=== PATIENT | female | born 1970 | race African-American/Black ===

== ENCOUNTER 2020-05-02 20:53 | Inpatient (IN) | payer BC, OTHER ==
[~2020-05-02] VITALS: Ht 162.6 cm; Wt 97.8 kg
[~2020-05-02 20:53] MED LIST: EPIPEN 2-P0.3 MG/0.3 IJ; HYDR-2761 PO; IBUP-1060 PO; Oxycodone Hcl/Acetaminophen PO
--- NOTE | 2020-05-02 22:32 | RAD ---
Exam: Chest one view INDICATION: Cough TECHNIQUE: Frontal view of the chest Comparisons: None FINDINGS: The cardiomediastinal silhouette and pulmonary vessels are within normal limits. The lung and pleural spaces are clear. IMPRESSION: No acute cardiopulmonary process. Electronically signed by: Dayne Boyd MD (05/02/2020 10:30 PM) ABHILASH
[2020-05-02 22:33] LABS: BASO % 1 % (0-3); EOS # 0.1 x10^3/uL (0.0-0.7); EOS % 2 % (0-3); HEMATOCRIT 37.4 % (36.0-47.0); HEMOGLOBIN 12.2 g/dL (12.0-15.5); LYMPH # 1.7 x10^3/uL (1.0-4.8); LYMPH % 25 % (24-48); MEAN CORPUSCULAR HEMOGLOBIN 27 pg (25-35); MEAN CORPUSCULAR HGB CONC 33 g/dL (31-37); MEAN CORPUSCULAR VOLUME 83 fL (79-100); MONO # 0.4 x10^3/uL (0.0-1.1); MONO % 6 % (0-9); NEUT # 4.4 x10^3/uL (1.8-7.7); NEUT % 66 % (31-73); PLATELET COUNT 286 x10^3/uL (140-400); WHITE BLOOD COUNT 6.7 x10^3/uL (4.0-11.0)
[2020-05-02 22:52] LABS: CALCIUM 8.4 mg/dL (8.5-10.1); CREATININE 0.9 mg/dL (0.6-1.0); GFR 80.5; POTASSIUM 3.5 mmol/L (3.5-5.1)
[2020-05-02] MEDS ORDERED: KETOROLAC 30 MG/ML VIAL. IVP ONE (23:00)
[2020-05-02] MEDS ORDERED: DEXAMETHASONE SOD PHOS 20 MG/5 ML VIAL. IVP ONE (23:00)
[2020-05-02] MEDS ORDERED: IV NORMAL SALINE 1000ML BAG 1,000 ML IV ONE (23:00)
[2020-05-02 23:04] LABS: ALBUMIN 3.3 g/dL (3.4-5.0); ALBUMIN/GLOBULIN RATIO 0.8 (1.0-1.7); C-REACTIVE PROTEIN 19.5 mg/L (0-3.3); TOTAL BILIRUBIN 0.1 mg/dL (0.2-1.0); TOTAL PROTEIN 7.6 g/dL (6.4-8.2)
--- NOTE | 2020-05-02 23:46 | ED.ADGEN ---
Past Medical History Past Medical History: No Pertinent History Past Surgical History: No Surgical History Smoking Status: Never Smoker Alcohol Use: Occasionally General Adult EDM: Chief Complaint: COUGH HPI: HPI: Patient is a 49-year-old female who presents to the emergency room complaining of cough, substernal chest pain, diffuse body aches, fatigue, urinary urgency, fever, headaches. Patient's started feeling ill last Sunday. She had a positive coronavirus test today. She has not been taking anything for symptoms at home. She states that she is mostly been praying to help with her symptoms. She has not tried anything [id number]. She states is substernal chest pain feels like aching has been constant all day. It is worse every time she coughs or moves. Her body aches have improved since . Review of Systems: Review of Systems: Complete ROS is negative unless otherwise documented in HPI Current Medications: Current Medications Medications (Trade) Dose Ordered Sig/Tierra Start Time Stop Time Status Last Admin Dose Admin Dexamethasone Sodium Phosphate (Decadron) 10 mg 1X ONCE 05/02/20 23:00 05/02/20 23:01 DC 05/02/20 23:22 10 MG Ketorolac Tromethamine (Toradol 30mg Vial) 30 mg 1X ONCE 05/02/20 23:00 05/02/20 23:01 DC 05/02/20 23:23 30 MG Sodium Chloride 1,000 ml @ 1,000 mls/hr 1X ONCE 05/02/20 23:00 05/02/20 23:59 DC 05/02/20 23:21 1,000 MLS/HR Allergies: Allergies: Allergies Coded Allergies Type Severity Reaction Last Updated Verified Penicillins Allergy Severe Anaphylaxis 02/25/14 Yes shellfish derived Allergy Severe Anaphylaxis 02/25/14 Yes iodine Adverse Reaction Intermediate NAUSEA, DIARRHEA 02/26/14 Yes Physical Exam: PE: General: Awake, alert, NAD. Well Nourished, well hydrated. Cooperative HEENT: Atraumatic, EOMI, PERRL, airway patent, moist oral mucosa Neck: Supple, trachea midline Respiratory: CTA bilaterally, normal effort, no wheezing/crackles CV: RRR, no murmur, cap refill <2 GI: Soft, nondistended, nontender, no masses MSK: No obvious deformities Skin: Warm, dry, intact Neuro: A&O x3, speech NL, sensory and motor grossly intact, no focal deficits Psych: Normal affect, normal mood, not suicidal or homicidal Current Patient Data: Labs: Laboratory Tests Test 05/02/20 22:25 05/03/20 00:08 05/03/20 01:45 White Blood Count 6.7 x10^3/uL (4.0-11.0) Red Blood Count 4.50 x10^6/uL (3.50-5.40) Hemoglobin 12.2 g/dL (12.0-15.5) Hematocrit 37.4 % (36.0-47.0) Mean Corpuscular Volume 83 fL (79-100) Mean Corpuscular Hemoglobin 27 pg (25-35) Mean Corpuscular Hemoglobin Concent 33 g/dL (31-37) Red Cell Distribution Width 16.0 % (11.5-14.5) H Platelet Count 286 x10^3/uL (140-400) Neutrophils (%) (Auto) 66 % (31-73) Lymphocytes (%) (Auto) 25 % (24-48) Monocytes (%) (Auto) 6 % (0-9) Eosinophils (%) (Auto) 2 % (0-3) Basophils (%) (Auto) 1 % (0-3) Neutrophils # (Auto) 4.4 x10^3/uL (1.8-7.7) Lymphocytes # (Auto) 1.7 x10^3/uL (1.0-4.8) Monocytes # (Auto) 0.4 x10^3/uL (0.0-1.1) Eosinophils # (Auto) 0.1 x10^3/uL (0.0-0.7) Basophils # (Auto) 0.0 x10^3/uL (0.0-0.2) D-Dimer (Rhonda) < 0.27 ug/mlFEU Sodium Level 140 mmol/L (136-145) Potassium Level 3.5 mmol/L (3.5-5.1) Chloride Level 105 mmol/L (98-107) Carbon Dioxide Level 28 mmol/L (21-32) Anion Gap 7 (6-14) Blood Urea Nitrogen 8 mg/dL (7-20) Creatinine 0.9 mg/dL (0.6-1.0) Estimated GFR (Cockcroft-Gault) 80.5 BUN/Creatinine Ratio 9 (6-20) Glucose Level 93 mg/dL (70-99) Calcium Level 8.4 mg/dL (8.5-10.1) L Total Bilirubin 0.1 mg/dL (0.2-1.0) L Aspartate Amino Transferase (AST) 21 U/L (15-37) Alanine Aminotransferase (ALT) 19 U/L (14-59) Alkaline Phosphatase 78 U/L (46-116) Lactate Dehydrogenase 258 U/L (81-234) H Creatine Kinase 126 U/L (26-192) Troponin I Quantitative 0.081 ng/mL (0.000-0.055) 0.105 ng/mL (0.000-0.055) C-Reactive Protein, Quantitative 19.5 mg/L (0-3.3) H [id number]-Zub-[id number]-Type Natriuretic Peptide 24 pg/mL (0-124) Total Protein 7.6 g/dL (6.4-8.2) Albumin 3.3 g/dL (3.4-5.0) L Albumin/Globulin Ratio 0.8 (1.0-1.7) L Urine Collection Type Unknown Urine Color Yellow Urine Clarity Clear Urine pH 7.0 (<5.0-8.0) Urine Specific [place] 1.010 (1.000-1.030) Urine Protein Negative mg/dL (NEG-TRACE) Urine Glucose (UA) Negative mg/dL (NEG) Urine Ketones (Stick) Negative mg/dL (NEG) Urine Blood Negative (NEG) Urine Nitrite Negative (NEG) Urine Bilirubin Negative (NEG) Urine Urobilinogen Dipstick 0.2 mg/dL (0.2 mg/dL) Urine Leukocyte Esterase Trace (NEG) Urine RBC Occ /HPF (0-2) Urine WBC 1-4 /HPF (0-4) Urine Squamous Epithelial Cells Mod /LPF Urine Bacteria Few /HPF (0-FEW) Urine Mucus Slight /LPF Laboratory Tests 05/02/20 22:25 Laboratory Tests 05/02/20 22:25 Vital Signs: Vital Signs Date Time Temp Pulse Resp B/P (MAP) Pulse Ox O2 Delivery O2 Flow Rate FiO2 05/03/20 01:57 58 140/60 (86) 99 Room Air 05/02/20 21:00 97.9 18 97.9 EKG: EKG: [] Heart Score: Risk Factors: Risk Factors: DM, Current or recent (<one month) smoker, HTN, HLP, family history of CAD, obesity. Risk Scores: Score 0 - 3: 2.5% MACE over next 6 weeks - Discharge Home Score 4 - 6: 20.3% MACE over next 6 weeks - Admit for Clinical Observation Score 7 - 10: 72.7% MACE over next 6 weeks - Early Invasive Strategies Radiology/Procedures: Radiology/Procedures: [] Course & Med Decision Making: Course & Med Decision Making Pertinent Labs and Imaging studies reviewed. (See chart for details) Patient is a 49-year-old female who presents to the emergency room with known coronavirus. Patient symptoms are all consistent with novel coronavirus 19. Patient is overall well-appearing. She has not tried anything for symptoms at home. We will give her fluids, Decadron, Toradol here in the emergency room. Labs were ordered to evaluate for any endorgan damage. Patient does have a very mild elevation of her troponin. Repeat was ordered after 3 hours to evaluate trend. Patient does not appear to be in a heart failure. EKG is normal. Troponin trended up. Will admit for observation. Dragon Disclaimer: Dragon Disclaimer: This electronic medical record was generated, in whole or in part, using a voice recognition dictation system. Departure Departure Impression: Primary Impression: Coronavirus infection Additional Impression: Elevated troponin Disposition: ADMITTED INPT THIS HOSP Condition: STABLE Referrals: IESHA HUFFMAN MD (PCP) Problem Qualifiers ANGÉLICA PLAZA MD May 02, 2020 23:46
[2020-05-03 00:20] LABS: BILIRUBIN,URINE NEGATIVE (NEG); CLARITY,URINE CLEAR; COLOR,URINE YELLOW; NITRITE,URINE NEGATIVE (NEG); PROTEIN,URINE NEGATIVE (NEG-TRACE); UROBILINOGEN,URINE 0.2 mg/dL (0.2 mg/dL)
[2020-05-03 00:25] LABS: BACTERIA,URINE FEW /HPF (0-FEW); RBC,URINE OCC /HPF (0-2)
[2020-05-03] MEDS ORDERED: MORPHINE SULFATE 4 MG/ML VIAL. IV PRN (04:00)
[2020-05-03 13:27] VITALS: BP 150/91
--- NOTE | 2020-05-03 13:29 | NUR ---
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 She had a rapid test come back negative but then had the send out test come back positive. She has been having multiple symptoms: cough, diarrhea, achy pain, back pain, funny taste in mouth, not eating well.
[2020-05-03] MEDS ORDERED: FERR-36 PO (13:35)
[2020-05-03] MEDS ORDERED: CYAN500T51 PO (13:35)
[2020-05-03] MEDS ORDERED: DEXTROSE 50% 25 GM / 50ML DISP.SYRIN. IV PRN (14:15)
[2020-05-03] MEDS ORDERED: DOCUSATE SODIUM 100 MG CAPSULE. PO PRN (14:15)
[2020-05-03] MEDS ORDERED: MORPHINE SULFATE 2 MG/ML VIAL. IV PRN ×2 (14:15)
[2020-05-03] MEDS ORDERED: ACETAMINOPHEN 325 MG TABLET. PO PRN (14:15)
[2020-05-03] MEDS ORDERED: ONDANSETRON PF 4 MG/2 ML VIAL. IVP PRN (14:15)
[2020-05-03] MEDS ORDERED: SENNOSIDES 8.6 MG TABLET PO PRN (14:15)
--- NOTE | 2020-05-03 14:55 | EKG ---
[facility] [address] [place] [address] Test Date: 2020-05-02 Test Time: 22:45:44 Pat Name: KOFI CATHERINE Department: Room: Gender: F Member Of Technical Staff: : 1970 Requested By: NAGÉLICA PLAZA Order Number: [id number] Reading MD: Measurements Intervals Pass Christian Rate: 58 P: 66 VA: 148 QRS: 42 QRSD: 80 T: 21 QT: 418 QTc: 414 Interpretive Statements SINUS RHYTHM NORMAL ECG RI6.02 No previous ECG available for comparison
[2020-05-03 15:00] VITALS: BP 153/61
[2020-05-03] MEDS ORDERED: ENOXAPARIN 40 MG/0.4 ML SYRINGE. SQ SCH (15:00)
[2020-05-03] MEDS: THIAMINE INJ 100 MG in IV DEXTROSE 5% 50 ML IV SCH ×2 (15:16→20:00)
--- NOTE | 2020-05-03 16:21 | PDOC1 ---
History and Physical Date of Service: DOS: DATE: 05/03/20 TIME: 16:14 Chief Complaint: Chief Complain: Body aches and chest pain History of Present Illness: HPI: 49-year-old female who presents to the emergency room complaining of cough, substernal chest pain, diffuse body aches, fatigue, urinary urgency, fever, headaches. Patient's started feeling ill last Sunday. She had a positive coronavirus test today. She has not been taking anything for symptoms at home. She states that she is mostly been praying to help with her symptoms. She has not tried anything [id number]. She states is substernal chest pain feels like aching has been constant all day. It is worse every time she coughs or moves. Her body aches have improved since . Past Medical/Surgical History: PMH/PSH: Past Medical History: No Pertinent History Past Surgical History: No Surgical History Allergies: Allergies: Coded Allergies: Penicillins (Verified Allergy, Severe, Anaphylaxis, 02/25/14) shellfish derived (Verified Allergy, Severe, Anaphylaxis, 02/25/14) iodine (Verified Adverse Reaction, Intermediate, NAUSEA, DIARRHEA, 02/26/14) Family History: Family History: Reviewed and none reported Social History: Social History: Smoking Status: Never Smoker Alcohol Use: Occasionally Current Medications: Current Medications Current Medications Dexamethasone Sodium Phosphate (Decadron) 10 mg 1X ONCE IVP Last administered on 05/02/20at 23:22; Start 05/02/20 at 23:00; Stop 05/02/20 at 23:01; Status DC Sodium Chloride 1,000 ml @ 1,000 mls/hr 1X ONCE IV Last administered on 05/02/20at 23:21; Start 05/02/20 at 23:00; Stop 05/02/20 at 23:59; Status DC Ketorolac Tromethamine (Toradol 30mg Vial) 30 mg 1X ONCE IVP Last administered on 05/02/20at 23:23; Start 05/02/20 at 23:00; Stop 05/02/20 at 23:01; Status DC Sennosides (Senna) 17.2 mg PRN BID PRN PO CONSTIPATION; Start 05/03/20 at 14:15 Docusate Sodium (Colace) 100 mg PRN DAILY PRN PO HARD STOOLS; Start 05/03/20 at 14:15 Ondansetron HCl (Zofran) 4 mg PRN Q6HRS PRN IVP NAUSEA/VOMITING; Start 04/20 09/07 at 14:15 Dextrose (Dextrose 50%-Water Syringe) 12.5 gm PRN Q15MIN PRN IV SEE COMMENTS; Start 05/03/20 at 14:15 Acetaminophen (Tylenol) 650 mg PRN Q4HRS PRN PO TEMP OVER 100.4F OR MILD PAIN; Start 05/03/20 at 14:15 Enoxaparin Sodium (Lovenox 40mg Syringe) 40 mg Q24H SQ Last administered on 05/03/20at 15:15; Start 05/03/20 at 15:00 Morphine Sulfate (Morphine Sulfate) 1 mg PRN Q1HR PRN IV PAIN; Start 05/03/20 at 14:15 Morphine Sulfate (Morphine Sulfate) 2 mg PRN Q2HR PRN IV SEVERE PAIN 7-10; Sta rt 05/03/20 at 04:00; Stop 05/04/20 at 03:59 Ascorbic Acid (Vitamin C) 3,000 mg TID PO ; Start 05/03/20 at 21:00 Thiamine HCl 100 mg/Dextrose 51 ml @ 102 mls/hr Q8HRS IV Last administered on 05/03/20at 15:16; Start 05/03/20 at 15:00 Morphine Sulfate (Morphine Sulfate) 2 mg PRN Q2HR PRN IV PAIN; Start 05/03/20 at 14:15 Active Scripts Active Reported Iron (Ferrous Sulfate) 325 Mg Tablet 1 Tab PO DAILY 30 Days Vitamin B-12 (Cyanocobalamin (Vitamin B-12)) 500 Mcg Tablet 1 Tab PO DAILY 30 Days Ibuprofen 800 Mg Tablet 1 Tab PO PRN Q6-8HRS PRN Epipen 2-Dario (Epinephrine) 0.3 Mg/0.3 Ml Auto.injct 0.3 Mg IJ ROS: Review of Systems Review of System REVIEW OF SYSTEMS: GENERAL: Denies weakness SKIN: No bruising, hair changes or rashes. EYES: No blurred, double or loss of vision. NOSE AND THROAT: No history of nosebleeds, hoarseness or sore throat. HEART: No history of palpitations, chest pain or shortness of breath on exertion. LUNGS: Denies cough, hemoptysis, wheezing or shortness of breath. GASTROINTESTINAL: Denies changes in appetite, nausea, vomiting, diarrhea or constipation. GENITOURINARY: No history of frequency, urgency, hesitancy or nocturia. NEUROLOGIC: Denies history of numbness, tingling, or tremor. PSYCHIATRIC: No history of panic, anxiety or depression. ENDOCRINE: No history of heat or cold intolerance, polyuria or polydipsia. EXTREMITIES: Denies joint pain, pain on walking or stiffness. Physical Exam: Vital Signs: Vital Signs Date Time Temp Pulse Resp B/P (MAP) Pulse Ox O2 Delivery O2 Flow Rate FiO2 05/03/20 15:00 98.3 61 20 153/61 (91) 100 98.3 05/03/20 12:57 Room Air Physcial Exam: GEN: No apparent distress. Alert and oriented HEENT: Normal cephalic, atraumatic, external auditory canals are patent EYES: Extraocular muscles are intact, pupil are equally round and reactive to light and accommodation MUSCULOSKELETAL: Well developed , well nourished, good range of motion ENDOCRINE: No thyromegaly was palpated LYMPHATICS: No cervical chain or axillary nodes were noted HEMATOPOIETIC: No bruising NECK: Supple, no JVD, no thyromegaly was noted LUNGS: Clear to auscultation in all lung noble without rhonchi or wheezing HEART: RRR, S!, S2 present. Peripheral pulses intact, no obvious murmurs noted ABDOMEN: Soft, nontender. Positive bowel sounds, no organomegaly, normal bowel sounds EXTREMITIES: Without clubbing, cyanosis, or edema. Pedal pulses intact. Negative Homans sign NEUROLOGIC: Normal speech and tone. A&O x 3, moves all extremities, no obvious focal deficits PSYCHIATRIC: Normal affect, normal mood. Stable SKIN: No ulcerations or rashes, good skin turgor, no jaundice VASCULAR: Good capillary refill, neurovascular bundle appears to be intact Labs: Labs: Laboratory Tests Test 05/02/20 22:25 05/03/20 00:08 05/03/20 01:45 White Blood Count 6.7 x10^3/uL (4.0-11.0) Red Blood Count 4.50 x10^6/uL (3.50-5.40) Hemoglobin 12.2 g/dL (12.0-15.5) Hematocrit 37.4 % (36.0-47.0) Mean Corpuscular Volume 83 fL (79-100) Mean Corpuscular Hemoglobin 27 pg (25-35) Mean Corpuscular Hemoglobin Concent 33 g/dL (31-37) Red Cell Distribution Width 16.0 % (11.5-14.5) Platelet Count 286 x10^3/uL (140-400) Neutrophils (%) (Auto) 66 % (31-73) Lymphocytes (%) (Auto) 25 % (24-48) Monocytes (%) (Auto) 6 % (0-9) Eosinophils (%) (Auto) 2 % (0-3) Basophils (%) (Auto) 1 % (0-3) Neutrophils # (Auto) 4.4 x10^3/uL (1.8-7.7) Lymphocytes # (Auto) 1.7 x10^3/uL (1.0-4.8) Monocytes # (Auto) 0.4 x10^3/uL (0.0-1.1) Eosinophils # (Auto) 0.1 x10^3/uL (0.0-0.7) Basophils # (Auto) 0.0 x10^3/uL (0.0-0.2) D-Dimer (Rhonda) < 0.27 ug/mlFEU Sodium Level 140 mmol/L (136-145) Potassium Level 3.5 mmol/L (3.5-5.1) Chloride Level 105 mmol/L (98-107) Carbon Dioxide Level 28 mmol/L (21-32) Anion Gap 7 (6-14) Blood Urea Nitrogen 8 mg/dL (7-20) Creatinine 0.9 mg/dL (0.6-1.0) Estimated GFR (Cockcroft-Gault) 80.5 BUN/Creatinine Ratio 9 (6-20) Glucose Level 93 mg/dL (70-99) Calcium Level 8.4 mg/dL (8.5-10.1) Total Bilirubin 0.1 mg/dL (0.2-1.0) Aspartate Amino Transf (AST/SGOT) 21 U/L (15-37) Alanine Aminotransferase (ALT/SGPT) 19 U/L (14-59) Alkaline Phosphatase 78 U/L (46-116) Lactate Dehydrogenase 258 U/L (81-234) Creatine Kinase 126 U/L (26-192) Troponin I Quantitative 0.081 ng/mL (0.000-0.055) 0.105 ng/mL (0.000-0.055) C-Reactive Protein, Quantitative 19.5 mg/L (0-3.3) HK-Dtj-O-Type Natriuretic Peptide 24 pg/mL (0-124) Total Protein 7.6 g/dL (6.4-8.2) Albumin 3.3 g/dL (3.4-5.0) Albumin/Globulin Ratio 0.8 (1.0-1.7) Urine Collection Type Unknown Urine Color Yellow Urine Clarity Clear Urine pH 7.0 (<5.0-8.0) Urine Specific [place] 1.010 (1.000-1.030) Urine Protein Negative mg/dL (NEG-TRACE) Urine Glucose (UA) Negative mg/dL (NEG) Urine Ketones (Stick) Negative mg/dL (NEG) Urine Blood Negative (NEG) Urine Nitrite Negative (NEG) Urine Bilirubin Negative (NEG) Urine Urobilinogen Dipstick 0.2 mg/dL (0.2 mg/dL) Urine Leukocyte Esterase Trace (NEG) Urine RBC Occ /HPF (0-2) Urine WBC 1-4 /HPF (0-4) Urine Squamous Epithelial Cells Mod /LPF Urine Bacteria Few /HPF (0-FEW) Urine Mucus Slight /LPF Laboratory Tests Test 05/02/20 22:25 05/03/20 00:08 05/03/20 01:45 White Blood Count 6.7 x10^3/uL (4.0-11.0) Red Blood Count 4.50 x10^6/uL (3.50-5.40) Hemoglobin 12.2 g/dL (12.0-15.5) Hematocrit 37.4 % (36.0-47.0) Mean Corpuscular Volume 83 fL (79-100) Mean Corpuscular Hemoglobin 27 pg (25-35) Mean Corpuscular Hemoglobin Concent 33 g/dL (31-37) Red Cell Distribution Width 16.0 % (11.5-14.5) Platelet Count 286 x10^3/uL (140-400) Neutrophils (%) (Auto) 66 % (31-73) Lymphocytes (%) (Auto) 25 % (24-48) Monocytes (%) (Auto) 6 % (0-9) Eosinophils (%) (Auto) 2 % (0-3) Basophils (%) (Auto) 1 % (0-3) Neutrophils # (Auto) 4.4 x10^3/uL (1.8-7.7) Lymphocytes # (Auto) 1.7 x10^3/uL (1.0-4.8) Monocytes # (Auto) 0.4 x10^3/uL (0.0-1.1) Eosinophils # (Auto) 0.1 x10^3/uL (0.0-0.7) Basophils # (Auto) 0.0 x10^3/uL (0.0-0.2) D-Dimer (Rhonda) < 0.27 ug/mlFEU Sodium Level 140 mmol/L (136-145) Potassium Level 3.5 mmol/L (3.5-5.1) Chloride Level 105 mmol/L (98-107) Carbon Dioxide Level 28 mmol/L (21-32) Anion Gap 7 (6-14) Blood Urea Nitrogen 8 mg/dL (7-20) Creatinine 0.9 mg/dL (0.6-1.0) Estimated GFR (Cockcroft-Gault) 80.5 BUN/Creatinine Ratio 9 (6-20) Glucose Level 93 mg/dL (70-99) Calcium Level 8.4 mg/dL (8.5-10.1) Total Bilirubin 0.1 mg/dL (0.2-1.0) Aspartate Amino Transf (AST/SGOT) 21 U/L (15-37) Alanine Aminotransferase (ALT/SGPT) 19 U/L (14-59) Alkaline Phosphatase 78 U/L (46-116) Lactate Dehydrogenase 258 U/L (81-234) Creatine Kinase 126 U/L (26-192) Troponin I Quantitative 0.081 ng/mL (0.000-0.055) 0.105 ng/mL (0.000-0.055) C-Reactive Protein, Quantitative 19.5 mg/L (0-3.3) QQ-Xtg-I-Type Natriuretic Peptide 24 pg/mL (0-124) Total Protein 7.6 g/dL (6.4-8.2) Albumin 3.3 g/dL (3.4-5.0) Albumin/Globulin Ratio 0.8 (1.0-1.7) Urine Collection Type Unknown Urine Color Yellow Urine Clarity Clear Urine pH 7.0 (<5.0-8.0) Urine Specific [place] 1.010 (1.000-1.030) Urine Protein Negative mg/dL (NEG-TRACE) Urine Glucose (UA) Negative mg/dL (NEG) Urine Ketones (Stick) Negative mg/dL (NEG) Urine Blood Negative (NEG) Urine Nitrite Negative (NEG) Urine Bilirubin Negative (NEG) Urine Urobilinogen Dipstick 0.2 mg/dL (0.2 mg/dL) Urine Leukocyte Esterase Trace (NEG) Urine RBC Occ /HPF (0-2) Urine WBC 1-4 /HPF (0-4) Urine Squamous Epithelial Cells Mod /LPF Urine Bacteria Few /HPF (0-FEW) Urine Mucus Slight /LPF Images: Images CXR IMPRESSION: No acute cardiopulmonary process. Assessment/Plan Assessment/Plan Acute chest pain concerning for unstable angina Troponinemia COVID-19 infection Admit to medicine for further evaluation Cardiology consult IV pain control as needed O2 supplementation as needed to keep O2 saturation greater than 90% Hold on IV steroids and remdesivir at this time Consider pulmonology or ID consult if clinical status worsens Continue with IV thiamine and vitamin C p.o. Lovenox for DVT prophylaxis ADA diet Full code Discussed with RN and SW Disposition inpatient management as above Surrogate decision maker is the Alex Jesus Justifications for Admission Chest Pain Indications Respiratory Distress?: Yes Justification for admission: Patient's respiratory distress as indicated by (SOB/tachypnea/abnormal breathing pattern plus hypoxemia/AMS/other evidence of respiratory compromise such as pulmonary edema on chest x-ray) will need inpatient level of care. Other Justification COVID infection DAVID BETANCOURT MD May 03, 2020 16:21
[2020-05-03] MEDS ORDERED: ASPIRIN ENTERIC COATED 325 MG TABLET.DR. PO ONE (16:30)
[2020-05-03 19:35] VITALS: BP 118/57
[2020-05-03] MEDS: ATORVASTATIN CALCIUM 40 MG TABLET. PO SCH (20:00)
[2020-05-03] MEDS: ASCORBIC ACID 1,000 MG TABLET PO SCH (20:00)
[2020-05-03 23:45] VITALS: BP 147/77
[2020-05-04 03:10] VITALS: BP 135/51
[2020-05-04] MEDS: THIAMINE INJ 100 MG in IV DEXTROSE 5% 50 ML IV SCH ×3 (06:08→22:12)
[2020-05-04 07:00] VITALS: BP 165/65
--- NOTE | 2020-05-04 08:50 | PDOC2 ---
CARDIAC CONSULT DATE OF CONSULT Date of Consult DATE: 05/04/20 TIME: 08:41 REASON FOR CONSULT Reason for Consult: Elevated troponin REFERRING PHYSICIAN Referring Physician: Dr. Enriquez SOURCE Source: Chart review, Patient HISTORY OF PRESENT ILLNESS HISTORY OF PRESENT ILLNESS This is a 49 yo female who presented secondary to cough, chest pain, diffuse body aches, fatigue, headaches, and fevers. Symptoms began last Sunday. Received + COVID test yesterday. Reports aching pain in her central chest. Worse with deep breathing. Troponin noted to be mildly elevation, which prompted this consult. Works in long-term care facility PAST MEDICAL HISTORY Heme/Onc: Anemia NOS Psych: Anxiety, Depression PAST SURGICAL HISTORY Past Surgical History: Cholecystectomy, Hernia Repair FAMILY HISTORY Family History: Hypertension SOCIAL HISTORY Smoke: No ALCOHOL: occassional Drugs: None CURRENT MEDICATIONS CURRENT MEDICATIONS Current Medications Medications (Trade) Dose Ordered Sig/Tierra Route PRN Reason Start Time Stop Time Status Last Admin Dose Admin Ondansetron HCl (Zofran) 4 mg PRN Q6HRS PRN IVP NAUSEA/VOMITING 05/03/20 14:15 05/03/20 23:58 Enoxaparin Sodium (Lovenox 40mg Syringe) 40 mg Q24H SQ 05/03/20 15:00 05/03/20 15:15 Ascorbic Acid (Vitamin C) 3,000 mg TID PO 05/03/20 21:00 05/03/20 20:00 Thiamine HCl 100 mg/Dextrose 51 ml @ 102 mls/hr Q8HRS IV 05/03/20 15:00 05/04/20 06:08 Aspirin (Ecotrin) 325 mg 1X ONCE PO 05/03/20 16:30 05/03/20 16:31 DC 05/03/20 17:31 Atorvastatin Calcium (Lipitor) 40 mg QHS PO 05/03/20 21:00 05/03/20 20:00 ALLERGIES ALLERGIES: Coded Allergies: Penicillins (Verified Allergy, Severe, Anaphylaxis, 02/25/14) shellfish derived (Verified Allergy, Severe, Anaphylaxis, 02/25/14) iodine (Verified Adverse Reaction, Intermediate, NAUSEA, DIARRHEA, 02/26/14) ROS Review of System 14 point ROS conducted with pertinent positives noted above in HPI PHYSICAL EXAM General: Alert, Oriented X3, Cooperative, No acute distress HEENT: Atraumatic Lungs: Other (on RA ) Heart: Regular rate (SR/SB) Abdomen: Soft Extremities: No edema, Normal pulses Skin: No significant lesion Neuro: Normal speech, Sensation intact Psych/Mental Status: Mental status NL, Mood NL VITALS/I&O VITALS/I&O: Vital Signs Date Time Temp Pulse Resp B/P (MAP) Pulse Ox O2 Delivery O2 Flow Rate FiO2 05/04/20 07:00 98.4 61 16 165/65 (98) 100 Room Air 98.4 I & O 05/03/20 05/03/20 05/04/20 14:59 22:59 06:59 Intake Total 200 ml 540 ml Balance 200 ml 540 ml ASSESSMENT/PLAN ASSESSMENT/PLAN 1. Fevers, myalgias, fatigue; COVID + 2. Chest pain, atypical. 3. Accelerated hypertension; remains elevated 4. Mild troponin elevation; highest 0.105. Most probable type II, demand ischemia in setting of COVID Recommendations ASA Lipid panel Trend trop Add lisinopril for BP control Outpatient echo to assess LV systolic function when recovered from COVID Consider outpatient ischemic evaluation Supportive care BUSHRA YEUNG APRN May 04, 2020 08:50
[2020-05-04 09:05] LABS: BASO % 1 % (0-3); EOS % 0 % (0-3); HEMATOCRIT 37.3 % (36.0-47.0); LYMPH # 2.1 x10^3/uL (1.0-4.8); LYMPH % 36 % (24-48); MEAN CORPUSCULAR HEMOGLOBIN 27 pg (25-35); MEAN CORPUSCULAR HGB CONC 32 g/dL (31-37); MEAN CORPUSCULAR VOLUME 83 fL (79-100); MONO # 0.5 x10^3/uL (0.0-1.1); MONO % 8 % (0-9); NEUT # 3.3 x10^3/uL (1.8-7.7); NEUT % 55 % (31-73); PLATELET COUNT 301 x10^3/uL (140-400); RED CELL DISTRIBUTION WIDTH 16.3 % (11.5-14.5); WHITE BLOOD COUNT 5.9 x10^3/uL (4.0-11.0)
[2020-05-04] MEDS: ASPIRIN ENTERIC COATED 81 MG TABLET.DR. PO SCH (09:22)
[2020-05-04] MEDS: ASCORBIC ACID 1,000 MG TABLET PO SCH ×3 (09:22→20:35)
[2020-05-04] MEDS: BENZONATATE 100 MG CAPSULE. PO SCH ×3 (09:23→20:35)
[2020-05-04] MEDS: LISINOPRIL 10 MG TABLET PO SCH (09:24)
[2020-05-04 09:25] LABS: CALCIUM 8.5 mg/dL (8.5-10.1); CREATININE 0.9 mg/dL (0.6-1.0); GFR 80.5; MAGNESIUM 2.1 mg/dL (1.8-2.4); PHOSPHORUS 2.8 mg/dL (2.6-4.7); POTASSIUM 3.4 mmol/L (3.5-5.1)
[2020-05-04 09:48] LABS: CHOLESTEROL/HDL RATIO 2.6
[2020-05-04] MEDS ORDERED: PIP/TAZO PER PHARMACY MC PRN (10:15)
[2020-05-04] MEDS ORDERED: POTASSIUM CHLORIDE 20 MEQ TABLET.ER. PO ONE (10:15)
[2020-05-04] MEDS ORDERED: ALBUTEROL SULFATE 8GM INHALER. INH PRN (10:15)
[2020-05-04 11:00] VITALS: BP 149/71
--- NOTE | 2020-05-04 11:38 | PDOC ---
[facility] [facility] PROGRESS NOTE Date of Service DOS: DATE: 05/04/20 TIME: 11:37 Chief Complaint Chief Complaint COVID-19 Respiratory failure History of Present Illness History of Present Illness 49-year-old female who presents to the emergency room complaining of cough, substernal chest pain, diffuse body aches, fatigue, urinary urgency, fever, headaches. Patient's started feeling ill last Sunday. She had a positive coronavirus test today. She has not been taking anything for symptoms at home. She states that she is mostly been praying to help with her symptoms. She has not tried anything [id number]. She states is substernal chest pain feels like aching has been constant all day. It is worse every time she coughs or moves. Her body aches have improved since . 05/04/20 Patient seen and examined in [place] [address] ICU Discussed with RN Chart reviewed Called pharmacy Patient appears extremely sick Vitals/I&O Vitals/I&O: Vital Signs Date Time Temp Pulse Resp B/P (MAP) Pulse Ox O2 Delivery O2 Flow Rate FiO2 05/04/20 09:24 61 165/65 05/04/20 08:00 Room Air 05/04/20 07:00 98.4 16 100 98.4 I & O 05/03/20 05/03/20 05/04/20 15:00 23:00 07:00 Intake Total 200 ml 540 ml Balance 200 ml 540 ml Physical Exam General: Cooperative, moderate distress Heart: Gallops (Tachycardic) Lungs: Wheezing, Crackles Extremities: No clubbing, No cyanosis Skin: No rashes, No breakdown Labs Labs: Laboratory Tests Test 05/04/20 08:40 White Blood Count 5.9 x10^3/uL (4.0-11.0) Red Blood Count 4.50 x10^6/uL (3.50-5.40) Hemoglobin 12.0 g/dL (12.0-15.5) Hematocrit 37.3 % (36.0-47.0) Mean Corpuscular Volume 83 fL (79-100) Mean Corpuscular Hemoglobin 27 pg (25-35) Mean Corpuscular Hemoglobin Concent 32 g/dL (31-37) Red Cell Distribution Width 16.3 % (11.5-14.5) Platelet Count 301 x10^3/uL (140-400) Neutrophils (%) (Auto) 55 % (31-73) Lymphocytes (%) (Auto) 36 % (24-48) Monocytes (%) (Auto) 8 % (0-9) Eosinophils (%) (Auto) 0 % (0-3) Basophils (%) (Auto) 1 % (0-3) Neutrophils # (Auto) 3.3 x10^3/uL (1.8-7.7) Lymphocytes # (Auto) 2.1 x10^3/uL (1.0-4.8) Monocytes # (Auto) 0.5 x10^3/uL (0.0-1.1) Eosinophils # (Auto) 0.0 x10^3/uL (0.0-0.7) Basophils # (Auto) 0.0 x10^3/uL (0.0-0.2) Sodium Level 141 mmol/L (136-145) Potassium Level 3.4 mmol/L (3.5-5.1) Chloride Level 106 mmol/L (98-107) Carbon Dioxide Level 25 mmol/L (21-32) Anion Gap 10 (6-14) Blood Urea Nitrogen 10 mg/dL (7-20) Creatinine 0.9 mg/dL (0.6-1.0) Estimated GFR (Cockcroft-Gault) 80.5 Glucose Level 95 mg/dL (70-99) Calcium Level 8.5 mg/dL (8.5-10.1) Phosphorus Level 2.8 mg/dL (2.6-4.7) Magnesium Level 2.1 mg/dL (1.8-2.4) Triglycerides Level 71 mg/dL (0-150) Cholesterol Level 163 mg/dL (0-200) LDL Cholesterol, Calculated 87 mg/dL (0-100) VLDL Cholesterol, Calculated 14 mg/dL (0-40) Non-HDL Cholesterol Calculated 101 mg/dL (0-129) HDL Cholesterol 62 mg/dL (40-60) Cholesterol/HDL Ratio 2.6 Assessment and Plan Assessmemt and Plan Acute chest pain concerning for unstable angina Troponinemia COVID-19 infection Plan Respiratory Isolation ICU monitoring COVID protocol Trend labs Appreciate subspecialist input Diabetic diet DVT prophylaxis Full code CC time 31-minute Comment Review of Relevant I have reviewed the following items srinath (where applicable) has been applied. Medications: Current Medications Medications (Trade) Dose Ordered Sig/Tierra Route PRN Reason Start Time Stop Time Status Last Admin Dose Admin Ondansetron HCl (Zofran) 4 mg PRN Q6HRS PRN IVP NAUSEA/VOMITING 05/03/20 14:15 05/03/20 23:58 Enoxaparin Sodium (Lovenox 40mg Syringe) 40 mg Q24H SQ 05/03/20 15:00 05/04/20 10:19 DC 05/03/20 15:15 Ascorbic Acid (Vitamin C) 3,000 mg TID PO 05/03/20 21:00 05/04/20 09:22 Thiamine HCl 100 mg/Dextrose 51 ml @ 102 mls/hr Q8HRS IV 05/03/20 15:00 05/04/20 06:08 Aspirin (Ecotrin) 325 mg 1X ONCE PO 05/03/20 16:30 05/03/20 16:31 DC 05/03/20 17:31 Atorvastatin Calcium (Lipitor) 40 mg QHS PO 05/03/20 21:00 05/03/20 20:00 Aspirin (Ecotrin) 81 mg DAILYWBKFT PO 05/04/20 09:00 05/04/20 09:22 Lisinopril (Prinivil) 10 mg DAILY PO 05/04/20 09:00 05/04/20 09:24 Benzonatate (Tessalon Perle) 100 mg [id number] PO 05/04/20 10:00 05/04/20 09:23 Justifications for Admission Chest Pain Indications Respiratory Distress?: Yes Justification for admission: Patient's respiratory distress as indicated by (SOB/tachypnea/abnormal breathing pattern plus hypoxemia/AMS/other evidence of respiratory compromise such as pulmonary edema on chest x-ray) will need inpatient level of care. Other Justification COVID infection JOSEPHINE JACKSON III DO May 04, 2020 11:38
[2020-05-04] MEDS: methylPREDNISolone SOD SUCC PF 40 MG/ML VIAL. IV SCH ×2 (11:56→20:36)
[2020-05-04] MEDS: MULTIVITAMIN with MINERAL TABLET. PO SCH (11:56)
[2020-05-04] MEDS ORDERED: AZITHROMYCIN 500 MG in IV NORMAL SALINE 250ML 250 ML IV SCH (12:00)
--- NOTE | 2020-05-04 13:47 | NUR ---
SS following for discharge planning. SS reviewed pt chart and discussed with pt RN. Pt is from home and is currently on room air. 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 COVID19 positive. Pt on IV Levaquin. Discharge plan is to home when medically ready. SS will continue to follow for discharge planning.
[2020-05-04 15:00] VITALS: BP 138/63
[2020-05-04 19:10] VITALS: BP 154/79
--- NOTE | 2020-05-04 19:25 | NUR ---
Pt in bed assessment completed pt denied pain at this time poc explained pt c/o constipation but refuses to take stool softener will give prune juice and continue to monitor pt.
[2020-05-04] MEDS: ATORVASTATIN CALCIUM 40 MG TABLET. PO SCH (20:35)
[2020-05-04] MEDS: ENOXAPARIN 40 MG/0.4 ML SYRINGE. SQ SCH (20:35)
[2020-05-04 23:01] VITALS: BP 146/76
[2020-05-05 03:21] VITALS: BP 158/68
[2020-05-05] MEDS: THIAMINE INJ 100 MG in IV DEXTROSE 5% 50 ML IV SCH (05:52)
[2020-05-05 07:00] VITALS: BP 181/92
[2020-05-05] MEDS: methylPREDNISolone SOD SUCC PF 40 MG/ML VIAL. IV SCH (08:14)
[2020-05-05 08:15] VITALS: BP 181/92
[2020-05-05] MEDS: ASPIRIN ENTERIC COATED 81 MG TABLET.DR. PO SCH (08:15)
[2020-05-05] MEDS: MULTIVITAMIN with MINERAL TABLET. PO SCH (08:15)
[2020-05-05] MEDS: LISINOPRIL 10 MG TABLET PO SCH (08:15)
[2020-05-05] MEDS: ASCORBIC ACID 1,000 MG TABLET PO SCH (08:15)
[2020-05-05] MEDS: ENOXAPARIN 40 MG/0.4 ML SYRINGE. SQ SCH (08:15)
[2020-05-05] MEDS: BENZONATATE 100 MG CAPSULE. PO SCH (08:16)
--- NOTE | 2020-05-05 08:47 | PDOC ---
[facility] [facility] PROGRESS NOTE Date of Service DOS: DATE: 05/05/20 TIME: 08:46 Chief Complaint Chief Complaint COVID-19 Respiratory failure History of Present Illness History of Present Illness 05/05/2020 Patient seen and examined in the [place] [address] ICU Discussed with RN Chart reviewed 49-year-old female who presents to the emergency room complaining of cough, substernal chest pain, diffuse body aches, fatigue, urinary urgency, fever, headaches. Patient's started feeling ill last Sunday. She had a positive coronavirus test today. She has not been taking anything for symptoms at home. She states that she is mostly been praying to help with her symptoms. She has not tried anything [id number]. She states is substernal chest pain feels like aching has been constant all day. It is worse every time she coughs or moves. Her body aches have improved since . 05/04/20 Patient seen and examined in [place] [address] ICU Discussed with RN Chart reviewed Called pharmacy Patient appears extremely sick Vitals/I&O Vitals/I&O: Vital Signs Date Time Temp Pulse Resp B/P (MAP) Pulse Ox O2 Delivery O2 Flow Rate FiO2 05/05/20 08:15 57 181/92 05/05/20 07:56 Room Air 05/05/20 07:00 96.8 18 99 96.8 I & O 05/04/20 05/04/20 05/05/20 15:00 23:00 07:00 Intake Total 400 ml 420 ml 120 ml Balance 400 ml 420 ml 120 ml Physical Exam General: Cooperative, mild distress Heart: Regular rate (SR/SB) Lungs: Wheezing, Crackles Abdomen: Soft Extremities: No edema, Normal pulses Skin: No significant lesion Labs Labs: Laboratory Tests Test 05/04/20 11:34 Troponin I Quantitative 0.085 ng/mL (0.000-0.055) Assessment and Plan Assessmemt and Plan Problems Medical Problems: (1) Coronavirus infection Status: Acute (2) Elevated troponin Status: Acute Acute chest pain concerning for unstable angina [facility] Plan Respiratory Isolation ICU monitoring COVID protocol Trend labs Appreciate subspecialist input Diabetic diet DVT prophylaxis Full code Comment Review of Relevant I have reviewed the following items srinath (where applicable) has been applied. Medications: Current Medications Medications (Trade) Dose Ordered Sig/Tierra Route PRN Reason Start Time Stop Time Status Last Admin Dose Admin Aspirin (Ecotrin) 81 mg DAILYWBKFT PO 05/04/20 09:00 05/05/20 08:15 Lisinopril (Prinivil) 10 mg DAILY PO 05/04/20 09:00 05/05/20 08:15 Benzonatate (Tessalon Perle) 100 mg [id number] PO 05/04/20 10:00 05/05/20 08:16 Albuterol Sulfate (Ventolin Hfa) 1 puff PRN Q4HRS PRN INH SHORTNESS OF BREATH 05/04/20 10:15 05/04/20 12:06 Methylprednisolone Sodium Succinate (SOLU-Medrol 40MG VIAL) 40 mg BID IV 05/04/20 12:00 05/05/20 08:14 Multivitamins (Thera M Plus) 1 tab DAILY PO 05/04/20 12:00 05/05/20 08:15 Potassium Chloride (Klor-Con) 40 meq 1X ONCE PO 05/04/20 10:15 05/04/20 10:16 DC 05/04/20 11:56 Enoxaparin Sodium (Lovenox 40mg Syringe) 40 mg Q12HR SQ 05/04/20 21:00 05/05/20 08:15 Levofloxacin/ Dextrose 150 ml @ 100 mls/hr Q24H IV 05/04/20 12:00 05/04/20 11:56 Justifications for Admission Chest Pain Indications Respiratory Distress?: Yes Justification for admission: Patient's respiratory distress as indicated by (SOB/tachypnea/abnormal breathing pattern plus hypoxemia/AMS/other evidence of respiratory compromise such as pulmonary edema on chest x-ray) will need inpatient level of care. Other Justification COVID infection JOSEPHINE JACKSON III DO May 05, 2020 08:47
[2020-05-05 08:49] LABS: BASO % 0 % (0-3); EOS % 0 % (0-3); HEMATOCRIT 40.9 % (36.0-47.0); HEMOGLOBIN 13.3 g/dL (12.0-15.5); LYMPH # 1.4 x10^3/uL (1.0-4.8); LYMPH % 14 % (24-48); MEAN CORPUSCULAR HEMOGLOBIN 27 pg (25-35); MEAN CORPUSCULAR HGB CONC 32 g/dL (31-37); MEAN CORPUSCULAR VOLUME 83 fL (79-100); MONO # 0.5 x10^3/uL (0.0-1.1); MONO % 5 % (0-9); NEUT # 7.7 x10^3/uL (1.8-7.7); NEUT % 81 % (31-73); PLATELET COUNT 319 x10^3/uL (140-400); RED BLOOD COUNT 4.95 x10^6/uL (3.50-5.40); RED CELL DISTRIBUTION WIDTH 15.9 % (11.5-14.5); WHITE BLOOD COUNT 9.6 x10^3/uL (4.0-11.0)
--- NOTE | 2020-05-05 09:02 | PDOC ---
BUSHRA YEUNG GEOFF 05/05/20 0902: CARDIO Progress Notes Date and Time Date of Service 05/05/20 Time of Evaluation 0900 Subjective Subjective: No shortness of breath, No Palpitations Vitals Vitals Vital Signs Date Time Temp Pulse Resp B/P (MAP) Pulse Ox O2 Delivery O2 Flow Rate FiO2 05/05/20 08:15 57 181/92 05/05/20 07:56 Room Air 05/05/20 07:00 96.8 18 99 96.8 Weight Weight [ ] Input and Output Intake and Output Intake and Output 05/05/20 07:00 Intake Total 940 ml Balance 940 ml Intake Oral 940 ml # Voids 6 Laboratory Labs Laboratory Tests Test 05/04/20 11:34 Troponin I Quantitative 0.085 ng/mL (0.000-0.055) Physical Exam HEENT: Neck Supple W Full Motion Chest: Symmetric LUNGS: Other (RA) Heart: RRR Abdomen: Soft N/T Extremities: No Edema Neurology: alert, oriented, follow commands Assessment Assessment 1. Fevers, myalgias, fatigue; COVID + 2. Chest pain, atypical. EKG without significant acute changes. LDL 87 3. Accelerated hypertension; remains elevated 4. Mild troponin elevation; peak 0.105. Most probable type II, demand ischemia in setting of COVID Recommendations ASA therapy Increase lisinopril for better BP control Outpatient echo to assess LV systolic function when recovered from COVID Consider outpatient ischemic evaluation Follow up in our office with Dr. Kay as scheduled Supportive care Justicifation of Admission Dx: Justifications for Admission: Justification of Admission Dx: Yes CAROLS KAY MD 05/05/20 1850: CARDIO Progress Notes Assessment Assessment Patient seen and evaluated Fevers, myalgias, fatigue; COVID +. Improving. Chest pain, atypical. EKG without significant acute changes. LDL 87 Accelerated hypertension; remains elevated. Lisinopril further increased. Mild troponin elevation; peak 0.105. Type II, demand ischemia in setting of COVID . Outpatient echo and follow-up. ANJANABUSHRA TELLEZ May 05, 2020 09:02 CARLOS KAY MD May 05, 2020 18:50
--- NOTE | 2020-05-05 09:08 | CONS ---
DATE OF CONSULTATION: 05/05/2020 REQUESTING PHYSICIAN: Lee Gonzales III, REASON FOR CONSULTATION: COVID positive. HISTORY OF PRESENT ILLNESS: This is a 49-year-old -[place] female, who works in a rehab center. The patient had not been feeling well for a while, maybe more than a week or 10 days. The patient had multiple tests done at her facility; they were negative. She continued to feel bad. Eventually, the last test that was done was positive, hence she came in. The patient has had some chest pain and diarrhea. She has had fever before she came in, some cough, shortness of breath, but now there is no more fever. The patient is on room air and cardiac workup has been decided. She had a troponin leak and it was decided that they would do outpatient. The patient denies any nausea, vomiting, or diarrhea. Denies any chest pain now, shortness of breath, abdominal pain, urinary symptoms, bowel symptoms or headache or visual symptoms. PAST MEDICAL HISTORY: Positive for gastroesophageal reflux disease, ventral hernia repair done, gallbladder disease, anemia, back problem, depression, anxiety, wisdom teeth extraction done. SOCIAL HISTORY: Negative for smoking, occasional alcohol use. No drug use. ALLERGIES: THE PATIENT IS LISTED ALLERGIC TO PENICILLIN, CAUSES HIVES. CURRENT MEDICATIONS: Reviewed. The patient is on levofloxacin and methylprednisolone. REVIEW OF SYSTEMS: As per HPI, all other systems reviewed are negative. PHYSICAL EXAMINATION: GENERAL: Alert, oriented female, not in any distress, on room air. VITAL SIGNS: Stable, afebrile. HEENT: NAD. NECK: Supple. No JVP. No lymphadenopathy. LUNGS: Clear. HEART: S1, S2 regular. ABDOMEN: Benign. EXTREMITIES: No edema or cyanosis. SKIN: Unremarkable. NEUROLOGIC: The patient is alert, awake, appropriate. No focal neurologic deficit. LABORATORY DATA: White count is normal. BUN and creatinine is normal. Troponin was up to 0.105. Urinalysis unremarkable. Her chest x-ray showed no acute process. IMPRESSION: 1. COVID-19 positive. 2. Chest pain. 3. Troponin leak. 4. Anemia. RECOMMENDATIONS: The patient does not need Levaquin, can be discontinued. The patient can be actually discharged from the Infectious Disease standpoint of view. Troponin and cardiac workup as per the Cardiology. Thank you very much, Dr. Gonzales, for giving me the opportunity to participate in this patient's care. NICKIE LOPEZ MD DR: MAKENNA/bjorn JOB#: [id number] / [id number]
[2020-05-05 09:14] LABS: CALCIUM 9.4 mg/dL (8.5-10.1); CREATININE 0.8 mg/dL (0.6-1.0); GFR 92.2; POTASSIUM 4.3 mmol/L (3.5-5.1)
[2020-05-05] MEDS ORDERED: LISI10TA2 PO (09:53)
[2020-05-05] MEDS ORDERED: ASPI-630 PO (09:53)
[2020-05-05] MEDS ORDERED: LISI-334 PO (10:46)
--- NOTE | 2020-05-05 11:32 | NUR ---
SS following up with discharge planning. SS reviewed pt chart and discussed with pt RN. Pt is currently on room air. COVID19 positive. Discharge order on the chart for home with self care.
--- NOTE | 2020-05-05 12:25 | NUR ---
Discharge Note: ROSCOE CATHERINE Discharge instructions and discharge home medications reviewed with Patient and a copy given. All questions have been answered and understanding verbalized.
--- NOTE | 2020-05-06 12:48 | DS ---
DATE OF DISCHARGE: 05/05/2020 ADMISSION DIAGNOSES: 1. Chest pain. 2. COVID-19 infection. 3. Elevated troponin. DISCHARGE DIAGNOSES: 1. Resolving chest pain. 2. Resolving COVID-19 infection. CONSULTS: Cardiology and Infectious Disease. HOSPITAL COURSE: The patient is a pleasant middle-aged female who presented with chest pain and she had been tested positive for COVID-19. Basically, we admitted the patient. We treated her for her COVID-19. We consulted Infectious Disease and Cardiology. Her maximum troponin level was 0.105. Yesterday, I saw her and examined her. She was at her baseline. Heart tones were normal. Lungs were clear. She wanted to go home. We discharged her to home. DISPOSITION: Home. ACTIVITY: As tolerated. DIET: Low sodium. MEDICATIONS: Please see the MRAD. TOTAL TIME: 32 minutes. SURESHL Akhil JACKSON DO DR: MISA/bjorn JOB#: [id number] / [id number]
== END 2020-05-05 12:28 | disposition home or self-care (01) | DRG 177 ==
LOC: ER 20:53 → 6 NORTH 05-03 04:25 → OBSVTOIN 05-03 04:25 → CVICU 05-03 12:01 → ED HOLD 05-03 12:26 → CVICU 05-03 13:30
PROVIDERS: ADMIT Family Medicine; ATTEND Family Medicine
DX: U07.1 COVID-19 (principal); J96.91 Respiratory failure, unspecified with hypoxia; D64.9 Anemia, unspecified; I10 Essential (primary) hypertension; R07.89 Other chest pain; F32.9 Major depressive disorder, single episode, unspecified; F41.9 Anxiety disorder, unspecified; K21.9 Gastro-esophageal reflux disease without esophagitis; Z91.041 Radiographic dye allergy status; Z82.49 Family history of ischemic heart disease and other diseases of the circulatory system; Z88.0 Allergy status to penicillin; Z91.013 Allergy to seafood; Z90.49 Acquired absence of other specified parts of digestive tract
CPT/HCPCS: 36415; 71045; 80048; 80053; 80061; 81001; 82550; 83615; 83735; 83880; 84100; 84484; 85025; 85379; 86140; 93005; 96361; 96374; 96375; 99285; J1100; J1650; J1885; J1956; J2405; J2920; J3411; J7030; J7060; G0378

== ENCOUNTER 2020-06-13 12:37 | Emergency (ER) | payer BC, OTHER ==
[~2020-06-13] VITALS: Ht 162.6 cm; Wt 97.0 kg
[~2020-06-13 12:37] MED LIST changes: +ASPI-630 PO; +CYAN500T7 PO; +FERR-36 PO; +LISI-334 PO; +LISI10TA2 PO
[2020-06-13] MEDS ORDERED: IV NORMAL SALINE 1000ML BAG 1,000 ML IV ONE (13:30)
--- NOTE | 2020-06-13 13:34 | PHYS DOC ---
Past Medical History Past Medical History: No Pertinent History Past Surgical History: No Surgical History Smoking Status: Never Smoker Alcohol Use: Occasionally NIHSS Stroke Scale NIH Stroke Scale: NIH Stroke Scale Response (Comments) Value Level of Consciousness: 0 Alert/Responsive 0 LOC Questions: 0 Answers both correctly 0 LOC Commands: 0 Performs both tasks 0 Best Gaze: 0 Normal 0 Visual: 0 No visual loss 0 Facial Palsy: 0 Normal, symmetrical 0 Motor - Left Arm 0 No drift 0 Motor - Right Arm 0 No drift 0 Motor - Left Leg 0 No drift 0 Motor: Right Leg 0 No drift 0 Limb Ataxia: 0 Absent 0 Sensory: 0 No loss 0 Best Language: 1 Mild to mod aphasia 1 Dysathria: 1 Mild to moderate 1 Extinction and Inattention: 0 Normal 0 Total 2 General Adult EDM: Chief Complaint: ALTERED MENTAL STATUS HPI: HPI: Patient is a 49 year old female who presents with here by herself with confusion. She states that back in April she was diagnosed with Covid and was in the ED. She states that she went to her follow-up appointment with Dr. Huffman on the May 17 and had told him at that time that she was feeling confused. She states that she knows what she wants to stay but she cannot get the words out of her mouth. Her words are also slightly slurred but she is understandable. Patient states that May 31 she began having blood in her stools and went back to the doctor of which on June 08 she was placed on Flagyl and ciprofloxacin. Patient also takes lisinopril every day. She states that her primary care told her that this is probably part of Covid. She states that she feels lightheaded or as though she is floating or as though she is " here but not here". She also feels nauseated. She states that she is having abdominal bloating and then has a stool that is diarrhea and then she feels better but then begins to bloat up again. Patient denies vision changes, s yncope, headache, dizziness, focal weakness, abdominal pain, back pain, numbness or tingling, difficulty walking, urinary symptoms, fever, cough, shortness of breath, chest pain. Patient's other history is hypertension. She states she is eating and drinking appropriately without complications. She denies any pain. Review of Systems: Review of Systems: Constitutional: Denies fever or chills. [] Eyes: Denies change in visual acuity. [] HENT: Denies nasal congestion or sore throat. [] Respiratory: Denies cough or shortness of breath. [] Cardiovascular: Denies chest pain or edema. [] GI: Denies abdominal pain, nausea, vomiting, bloody stools or diarrhea. [] : Denies dysuria. [] Musculoskeletal: Denies back pain or joint pain. [] Integument: Denies rash. [] Neurologic: Denies headache, focal weakness or sensory changes. + Confusion, + expressive aphasia [] Endocrine: Denies polyuria or polydipsia. [] Lymphatic: Denies swollen glands. [] Psychiatric: Denies depression or anxiety. [] Heart Score: Risk Factors: Risk Factors: DM, Current or recent (<one month) smoker, HTN, HLP, family history of CAD, obesity. Risk Scores: Score 0 - 3: 2.5% MACE over next 6 weeks - Discharge Home Score 4 - 6: 20.3% MACE over next 6 weeks - Admit for Clinical Observation Score 7 - 10: 72.7% MACE over next 6 weeks - Early Invasive Strategies Allergies: Allergies: Allergies Coded Allergies Type Severity Reaction Last Updated Verified Penicillins Allergy Severe Anaphylaxis 02/25/14 Yes shellfish derived Allergy Severe Anaphylaxis 02/25/14 Yes iodine Adverse Reaction Intermediate NAUSEA, DIARRHEA 02/26/14 Yes Physical Exam: PE: Constitutional: Well developed, well nourished, no acute distress, non-toxic appearance. [] HENT: Normocephalic, atraumatic, bilateral external ears normal, oropharynx moist, no oral exudates, nose normal. [] Eyes: PERRLA, EOMI, conjunctiva normal, no discharge. [] Neck: Normal range of motion, no tenderness, supple, no stridor. [] Cardiovascular:Heart rate regular rhythm, no murmur [] Lungs & Thorax: Bilateral breath sounds clear to auscultation [] Abdomen: Bowel sounds normal, soft, no tenderness, no masses, no pulsatile masses. [] Skin: Warm, dry, no erythema, no rash. [] Back: No tenderness, no CVA tenderness. [] Extremities: No tenderness, no cyanosis, no clubbing, ROM intact, no edema. [] Neurologic: Alert and oriented X 3, normal motor function, normal sensory function, no focal deficits noted. Hard time getting her words out to explain what she wants to say [] Psychologic: Affect normal, judgement normal, mood normal. [] EKG: EKG: [] Radiology/Procedures: Radiology/Procedures: [] Impression: [facility] [address] [place] [address] IMAGING REPORT Signed PATIENT: KOFI CATHERINEACCOUNT: [id number] : 1970 LOCATION: ER AGE: 49 SEX: F EXAM STATUS: REG ER ORD. PHYSICIAN: MAHESH RODRÍGUEZ APRN REASON: CONFUSION PROCEDURE: CT HEAD WO CONTRAST CT HEAD/BRAIN WO History: Reason: CONFUSION / Spl. Instructions: / History: Comparison: None. Technique: Noncontrast CT imaging was performed of the head. Exposure: One or more of the following individualized dose reduction techniques were utilized for this examination: 1. Automated exposure control 2. Adjustment of the mA and/or kV according to patient size 3. Use of iterative reconstruction technique. Findings: No intracranial hemorrhage. No mass effect. No hydrocephalus. Extra-axial spaces are unremarkable. Imaged orbits are unremarkable. Imaged paranasal sinuses and mastoid air cells are clear. No acute calvarial fracture. Impression: 1. No acute intracranial abnormality. Electronically signed by: Jaime Gutierrez DO (06/13/2020 1:52 PM) [id number] DICTATED and SIGNED BY: JAIME GUTIERREZ DO DATE: 06/13/20 [id number] [place] [id number] [place], [place] [id number] IMAGING REPORT Signed PATIENT: KOFI CATHERINEACCOUNT: [id number] : 1970 LOCATION: ER AGE: 49 SEX: F EXAM STATUS: REG ER ORD. PHYSICIAN: MAHESH RODRÍGUEZ APRN REASON: EPIGASTRIC PROCEDURE: PORTABLE CHEST 1V XR CHEST 1V History: Reason: EPIGASTRIC / Spl. Instructions: / History: Comparison: May 02, 2020 Findings: No consolidation or pleural effusion. Normal heart size. No pneumothorax. Impression: 1. No acute cardiopulmonary process. Electronically signed by: Jaime Gutierrez DO (06/13/2020 1:48 PM) [id number] DICTATED and SIGNED BY: JAIME GUTIERREZ DO DATE: 06/13/20 [id number] [facility] [address] [place] [address] IMAGING REPORT Signed PATIENT: KOFI CATHERINEACCOUNT: [id number] : 1970 LOCATION: ER AGE: 49 SEX: F EXAM STATUS: REG ER ORD. PHYSICIAN: MAHESH RODRÍGUEZ APRN REASON: ABD PAIN PROCEDURE: CT ABDOMEN PELVIS WO CONTRAST INDICATION: Reason: ABD PAIN / Spl. Instructions: / History: . COMPARISON: January 2014 TECHNIQUE: Axial CT images obtained through the abdomen and pelvis without contrast. One or more of the following individualized dose reduction techniques were utilized for this examination: 1. Automated exposure control; 2. Adjustment of the mA and/or kV according to patient size; 3. Use of iterative reconstruction technique. FINDINGS: Abdominal aorta is not aneurysmal. Low-density lesion is again seen within the right lobe of the liver measures approximately 35 x 29 mm. Postcholecystectomy changes. No peripancreatic fluid collection. Spleen is unremarkable. No left-sided hydronephrosis. Urinary bladder is largely decompressed. No right-sided hydronephrosis. Tubal occlusion device at the uterus bilaterally. No dilated loops of bowel to suggest obstruction. The left iliac wing there is a 2 cm sclerotic lesion again seen which could be from bone island. There are some smaller probable bone islands. IMPRESSION: * No hydronephrosis. * No dilated loops of bowel to suggest obstruction. * Repeat demonstration of low-density lesion in the right lobe the liver. Given the lack of significant growth the most likely cause is a benign causes such as hemangioma but nonspecific noncontrast CT appearance. Electronically signed by: Jian Glynn MD (06/13/2020 2:01 PM) [id number] DICTATED and SIGNED BY: JIAN GLYNN MD DATE: 06/13/20 [id number] Course & Med Decision Making: Course & Med Decision Making Pertinent Labs and Imaging studies reviewed. (See chart for details) See HPI. Alert and oriented x4. Speaks in full complete sentences but it is hard for her to express what she is wanting to say. Ambulatory with a steady gait. PERRLA. NIH is a 2 only because of speech. There is no facial droop. No focal weaknesses. Lungs are clear to auscultation all lobes. She is afebrile. CT head and abdomen pelvis showed no acute findings. Chest x-ray is clear. I spoke to Dr. Brown who states the patient needs further work-up and an MRI. He states that she can come into the hospital and be evaluated further. Patient is admitted to Dr. Early. [] Daniel Disclaimer: Daniel Disclaimer: This electronic medical record was generated, in whole or in part, using a voice recognition dictation system. Departure Departure Impression: Primary Impression: Expressive aphasia Disposition: ADMITTED INPT THIS HOSP Admitting Physician: ELIECER Condition: STABLE Referrals: IESHA HUFFMAN MD (PCP) MAHESH RODRÍGUEZ BIRTH CERTIFICATE CLERK Jun 13, 2020 13:34
[2020-06-13 13:46] LABS: BILIRUBIN,URINE NEGATIVE (NEG); CLARITY,URINE CLEAR; COLOR,URINE YELLOW; NITRITE,URINE NEGATIVE (NEG); PROTEIN,URINE NEGATIVE (NEG-TRACE); UROBILINOGEN,URINE 0.2 mg/dL (0.2 mg/dL)
--- NOTE | 2020-06-13 13:51 | RAD ---
XR CHEST 1V History: Reason: EPIGASTRIC / Spl. Instructions: / History: Comparison: May 02, 2020 Findings: No consolidation or pleural effusion. Normal heart size. No pneumothorax. Impression: 1. No acute cardiopulmonary process. Electronically signed by: Jaime Gutierrez DO (06/13/2020 1:48 PM) [id number]
--- NOTE | 2020-06-13 13:54 | RAD ---
CT HEAD/BRAIN WO History: Reason: CONFUSION / Spl. Instructions: / History: Comparison: None. Technique: Noncontrast CT imaging was performed of the head. Exposure: One or more of the following individualized dose reduction techniques were utilized for thi s examination: 1. Automated exposure control 2. Adjustment of the mA and/or kV according to patient size 3. Use of iterative reconstruction technique. Findings: No intracranial hemorrhage. No mass effect. No hydrocephalus. Extra-axial spaces are unremarkable. Imaged orbits are unremarkable. Imaged paranasal sinuses and mastoid air cells are clear. No acute ca lvarial fracture. Impression: 1. No acute intracranial abnormality. Electronically signed by: Jaime Gutierrez DO (06/13/2020 1:52 PM) [id number]
--- NOTE | 2020-06-13 14:04 | RAD ---
INDICATION: Reason: ABD PAIN / Spl. Instructions: / History: . COMPARISON: January 2014 TECHNIQUE: Axial CT images obtained through the abdomen and pelvis without contrast. One or more of the following individualized dose reduction techniques were utilized for this examinat ion: 1. Automated exposure control; 2. Adjustment of the mA and/or kV according to patient size; 3 . Use of iterative reconstruction technique. FINDINGS: Abdominal aorta is not aneurysmal. Low-density lesion is again seen within the right lobe of the liver measures approximately 35 x 29 mm . Postcholecystectomy changes. No peripancreatic fluid collection. Spleen is unremarkable. No left-sided hydronephrosis. Urinary bladder is largely decompressed. No right-sided hydronephrosis. Tubal occlusion device at the uterus bilaterally. No dilated loops of bowel to suggest obstruction. The left iliac wing there is a 2 cm sclerotic lesion again seen which could be from bone island. Ther e are some smaller probable bone islands. IMPRESSION: * No hydronephrosis. * No dilated loops of bowel to suggest obstruction. * Repeat demonstration of low-density lesion in the right lobe the liver. Given the lack of signific ant growth the most likely cause is a benign causes such as hemangioma but nonspecific noncontrast CT appearance. Electronically signed by: Cash Doran MD (06/13/2020 2:01 PM) [id number]
[2020-06-13 14:09] LABS: BACTERIA,URINE 0 /HPF (0-FEW); RBC,URINE 0 /HPF (0-2)
[2020-06-13 14:20] LABS: BASO # 0.1 x10^3/uL (0.0-0.2); BASO % 1 % (0-3); EOS # 0.1 x10^3/uL (0.0-0.7); EOS % 1 % (0-3); HEMATOCRIT 37.3 % (36.0-47.0); HEMOGLOBIN 12.4 g/dL (12.0-15.5); LYMPH # 1.8 x10^3/uL (1.0-4.8); LYMPH % 16 % (24-48); MEAN CORPUSCULAR HEMOGLOBIN 28 pg (25-35); MEAN CORPUSCULAR HGB CONC 33 g/dL (31-37); MEAN CORPUSCULAR VOLUME 85 fL (79-100); MONO # 0.8 x10^3/uL (0.0-1.1); MONO % 7 % (0-9); NEUT # 8.3 x10^3/uL (1.8-7.7); NEUT % 75 % (31-73); PLATELET COUNT 374 x10^3/uL (140-400); RED CELL DISTRIBUTION WIDTH 16.9 % (11.5-14.5); WHITE BLOOD COUNT 11.1 x10^3/uL (4.0-11.0)
[2020-06-13 14:26] LABS: CALCIUM 9.2 mg/dL (8.5-10.1); CREATININE 0.9 mg/dL (0.6-1.0); GFR 80.5; POTASSIUM 3.5 mmol/L (3.5-5.1)
[2020-06-13 14:34] LABS: ALBUMIN 3.7 g/dL (3.4-5.0); ALBUMIN/GLOBULIN RATIO 0.9 (1.0-1.7); TOTAL BILIRUBIN 0.3 mg/dL (0.2-1.0); TOTAL PROTEIN 7.7 g/dL (6.4-8.2)
--- NOTE | 2020-06-13 16:14 | PDOC1 ---
History and Physical Date of Admission Date of Admission DATE: 06/13/20 TIME: 16:08 Identification/Chief Complaint Chief Complaint Word finding difficulty Source Source: Patient History of Present Illness History of Present Illness Ms Jesus is a 49 year old female w/ PMHx depression, anxiety, GERD, HTN who presents with here by herself with "brain fog". She states that she knows what she wants to stay but she cannot get the words out of her mouth. She is able to enunciate and is able to write and type explicitly but has a long delay before finding the correct word. She is understandable and able to remember her appointments but sometimes has been forgetting to take her medications. She does note she has been having these symptoms ever since she was diagnosed with COVID-19 on May 02, 2020. She states that back in April she was diagnosed with Covid and was admitted for 3 days at that time due to elevated troponin and accelerated hypertension. She was not hypoxic and did not require remdesivir or steroids. She states that she went to her follow-up appointment with Dr. Mehta on the May 17 and had told him at that time that she was feeling this speech delay problem and occasional forgetfulness. 05/31/20 she began having blood in her stools and had some abdominal pain for 6 days, was placed on Flagyl and ciprofloxacin which she is about to complete. She feels lightheaded or as though she is floating or as though she is " here but not here". Patient denies vision changes, syncope, headache, dizziness, focal weakness, abdominal pain, back pain, numbness or tingling, difficulty walking, urinary symptoms, fever, cough, shortness of breath, chest pain. She states she is eating and drinking appropriately without complications. 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 No focal neurologic deficits. She denies any pain. NIHSS 2 due to speech delay. ED d/w neurology who recommended non-emergent MRI. Labs with WBC 11.1, Hb 12.4, platelets 374, NA 139, K3.5, BUN 11, CR 0.9, glucose 104, LFTs within normal limits lipase within normal limits. Troponin less than 0.34. CT head with no acute abnormalities. Called by ED for further assessment and consultation. Past Medical History Cardiovascular: HTN Heme/Onc: Anemia NOS Psych: Anxiety, Depression Past Surgical History Past Surgical History: Cholecystectomy, Hernia Repair Family History Family History: Hypertension Social History Smoke: No ALCOHOL: occassional Drugs: None Current Problem List Problem List Problems Medical Problems: (1) Expressive aphasia Status: Acute Current Medications Current Medications Current Medications Sodium Chloride 1,000 ml @ 1,000 mls/hr 1X ONCE IV Last administered on 06/13/20at 14:24; Start 06/13/20 at 13:30; Stop 06/13/20 at 14:29; Status DC Aspirin (Aspirin Chewable) 81 mg 1X ONCE PO ; Start 06/13/20 at 16:15; Stop 06/13/20 at 16:16 Active Scripts Active Reported Lisinopril 20 Mg Tablet 1 Tab PO DAILY Aspirin 81 Mg Tab.chew 1 Tab PO DAILY Iron (Ferrous Sulfate) 325 Mg Tablet 1 Tab PO DAILY 30 Days Vitamin B-12 (Cyanocobalamin (Vitamin B-12)) 500 Mcg Tablet 1 Tab PO DAILY 30 Days Ibuprofen 800 Mg Tablet 1 Tab PO PRN Q6-8HRS PRN Epipen 2-Dario (Epinephrine) 0.3 Mg/0.3 Ml Auto.injct 0.3 Mg IJ Allergies Allergies: Coded Allergies: Penicillins (Verified Allergy, Severe, Anaphylaxis, 02/25/14) shellfish derived (Verified Allergy, Severe, Anaphylaxis, 02/25/14) iodine (Verified Adverse Reaction, Intermediate, NAUSEA, DIARRHEA, 02/26/14) ROS General: No: Chills, Night Sweats, Fatigue, Malaise, Appetite, Other PSYCHOLOGICAL ROS: YES: Anxiety, Sleep disturbances; No: Behavioral Disorder, Concentration difficultie, Decreased libido, Depression, Disorientation, Hallucinations, Hostility, Irritablity, Memory difficulties, Mood Swings, Obsessive thoughts, Physical abuse, Sexual abuse, Suicidal ideation, Other Eyes: No Blurry vision, No Decreased vision, No Double vision, No Dry eyes, No Excessive tearing, No Eye Pain, No Itchy Eyes, No Loss of vision, No Photophobia, No Scotomata, No Uses contacts, No Uses glasses, No Other HEENT: No: Heacaches, Visual Changes, Hearing change, Nasal congestion, Nasal discharge, Oral lesions, Sinus pain, Sore Throat, Epistaxis, Sneezing, Snoring, Tinnitus, Vertigo, Vocal changes, Other ALLERGY AND IMMUNOLOGY: No: Hives, Insect Bite Sensitivity, Itchy/Watery Eyes, Nasal Congestion, Post Nasal Drip, Seasonal Allergies, Other Hematological and Lymphatic: No: Bleeding Problems, Blood Clots, Blood Transfusions, Brusing, Night Sweats, Pallor, Swollen Lymph Nodes, Other ENDOCRINE: No: Breast Changes, Galactorrhea, Hair Pattern Changes, Hot Flashes, Malaise/lethargy, Mood Swings, Palpitations, Polydipsia/polyuria, Skin Changes, Temperature Intolerance, Unexpected Weight Changes, Other Breast: No New/Changing Breast Lumps, No Nipple changes, No Nipple discharge, No Other Respiratory: No: Cough, Hemoptysis, Orthopnea, Pleuritic Pain, Shortness of breath, SOB with excertion, Sputum Changes, Stridor, Tachypnea, Wheezing, Other Cardiovascular: No Chest Pain, No Palpitations, No Orthopnea, No Paroxysmal Noc. Dyspnea, No Edema, No Lt Headedness, No Other Gastrointestinal: No Nausea, No Vomiting, No Abdominal Pain, No Diarrhea, No Constipation, No Melena, No Hematochezia, No Other Genitourinary: No Dysuria, No Frequency, No Incontinence, No Hematuria, No Retention, No Discharge, No Urgency, No Pain, No Flank Pain, No Other, No , No , No , No , No , No , No Musculoskeletal: No Gait Disturbance, No Joint Pain, No Joint Stiffness, No Joint Swelling, No Muscle Pain, No Muscular Weakness, No Pain In:, No Swelling In:, No Other Neurological: Yes Memory Loss, Yes Speech Problems; No Behavorial Changes, No Bowel/Bladder ControlChng, No Confusion, No Dizziness, No Gait Disturbance, No Headaches, No Impaired Coord/balance, No Numbness/Tingling, No Seizures, No Tremors, No Visual Changes, No Weakness, No Other Skin: No Dry Skin, No Eczema, No Hair Changes, No Lumps, No Mole Changes, No Mottling, No Nail Changes, No Pruritus, No Rash, No Skin Lesion Changes, No Other, No Acne Physical Exam General: Alert, Oriented X3, Cooperative, No acute distress HEENT: Atraumatic, PERRLA, EOMI, Mucous membr. moist/pink Lungs: Clear to auscultation, Normal air movement Heart: S1S2, RRR, no thrills, no rubs, no gallops, no murmurs Abdomen: Normal bowel sounds, Soft, No tenderness, No hepatosplenomegaly, No masses Rectal Exam: not examined Extremities: No clubbing, No cyanosis, No edema, Normal pulses, No tenderness/swelling Skin: No rashes, No breakdown, No significant lesion Neuro: Normal gait, Normal speech, Strength at 5/5 X4 ext, Normal tone, Sensation intact, Cranial nerves 3-12 NL, Reflexes 2+ Psych/Mental Status: Mental status NL, Mood NL Labs Labs Laboratory Tests Test 06/13/20 13:30 06/13/20 14:00 Urine Collection Type Unknown Urine Color Yellow Urine Clarity Clear Urine pH 6.0 (<5.0-8.0) Urine Specific [place] 1.015 (1.000-1.030) Urine Protein Negative mg/dL (NEG-TRACE) Urine Glucose (UA) Negative mg/dL (NEG) Urine Ketones (Stick) Negative mg/dL (NEG) Urine Blood Negative (NEG) Urine Nitrite Negative (NEG) Urine Bilirubin Negative (NEG) Urine Urobilinogen Dipstick 0.2 mg/dL (0.2 mg/dL) Urine Leukocyte Esterase Small (NEG) Urine RBC 0 /HPF (0-2) Urine WBC 1-4 /HPF (0-4) Urine Squamous Epithelial Cells Few /LPF Urine Bacteria 0 /HPF (0-FEW) White Blood Count 11.1 x10^3/uL (4.0-11.0) Red Blood Count 4.40 x10^6/uL (3.50-5.40) Hemoglobin 12.4 g/dL (12.0-15.5) Hematocrit 37.3 % (36.0-47.0) Mean Corpuscular Volume 85 fL (79-100) Mean Corpuscular Hemoglobin 28 pg (25-35) Mean Corpuscular Hemoglobin Concent 33 g/dL (31-37) Red Cell Distribution Width 16.9 % (11.5-14.5) Platelet Count 374 x10^3/uL (140-400) Neutrophils (%) (Auto) 75 % (31-73) Lymphocytes (%) (Auto) 16 % (24-48) Monocytes (%) (Auto) 7 % (0-9) Eosinophils (%) (Auto) 1 % (0-3) Basophils (%) (Auto) 1 % (0-3) Neutrophils # (Auto) 8.3 x10^3/uL (1.8-7.7) Lymphocytes # (Auto) 1.8 x10^3/uL (1.0-4.8) Monocytes # (Auto) 0.8 x10^3/uL (0.0-1.1) Eosinophils # (Auto) 0.1 x10^3/uL (0.0-0.7) Basophils # (Auto) 0.1 x10^3/uL (0.0-0.2) Sodium Level 139 mmol/L (136-145) Potassium Level 3.5 mmol/L (3.5-5.1) Chloride Level 103 mmol/L (98-107) Carbon Dioxide Level 27 mmol/L (21-32) Anion Gap 9 (6-14) Blood Urea Nitrogen 11 mg/dL (7-20) Creatinine 0.9 mg/dL (0.6-1.0) Estimated GFR (Cockcroft-Gault) 80.5 BUN/Creatinine Ratio 12 (6-20) Glucose Level 104 mg/dL (70-99) Calcium Level 9.2 mg/dL (8.5-10.1) Magnesium Level 2.0 mg/dL (1.8-2.4) Total Bilirubin 0.3 mg/dL (0.2-1.0) Aspartate Amino Transf (AST/SGOT) 21 U/L (15-37) Alanine Aminotransferase (ALT/SGPT) 26 U/L (14-59) Alkaline Phosphatase 65 U/L (46-116) Total Protein 7.7 g/dL (6.4-8.2) Albumin 3.7 g/dL (3.4-5.0) Albumin/Globulin Ratio 0.9 (1.0-1.7) Lipase 98 U/L (73-393) Laboratory Tests Test 06/13/20 13:30 06/13/20 14:00 Urine Collection Type Unknown Urine Color Yellow Urine Clarity Clear Urine pH 6.0 (<5.0-8.0) Urine Specific [place] 1.015 (1.000-1.030) Urine Protein Negative mg/dL (NEG-TRACE) Urine Glucose (UA) Negative mg/dL (NEG) Urine Ketones (Stick) Negative mg/dL (NEG) Urine Blood Negative (NEG) Urine Nitrite Negative (NEG) Urine Bilirubin Negative (NEG) Urine Urobilinogen Dipstick 0.2 mg/dL (0.2 mg/dL) Urine Leukocyte Esterase Small (NEG) Urine RBC 0 /HPF (0-2) Urine WBC 1-4 /HPF (0-4) Urine Squamous Epithelial Cells Few /LPF Urine Bacteria 0 /HPF (0-FEW) White Blood Count 11.1 x10^3/uL (4.0-11.0) Red Blood Count 4.40 x10^6/uL (3.50-5.40) Hemoglobin 12.4 g/dL (12.0-15.5) Hematocrit 37.3 % (36.0-47.0) Mean Corpuscular Volume 85 fL (79-100) Mean Corpuscular Hemoglobin 28 pg (25-35) Mean Corpuscular Hemoglobin Concent 33 g/dL (31-37) Red Cell Distribution Width 16.9 % (11.5-14.5) Platelet Count 374 x10^3/uL (140-400) Neutrophils (%) (Auto) 75 % (31-73) Lymphocytes (%) (Auto) 16 % (24-48) Monocytes (%) (Auto) 7 % (0-9) Eosinophils (%) (Auto) 1 % (0-3) Basophils (%) (Auto) 1 % (0-3) Neutrophils # (Auto) 8.3 x10^3/uL (1.8-7.7) Lymphocytes # (Auto) 1.8 x10^3/uL (1.0-4.8) Monocytes # (Auto) 0.8 x10^3/uL (0.0-1.1) Eosinophils # (Auto) 0.1 x10^3/uL (0.0-0.7) Basophils # (Auto) 0.1 x10^3/uL (0.0-0.2) Sodium Level 139 mmol/L (136-145) Potassium Level 3.5 mmol/L (3.5-5.1) Chloride Level 103 mmol/L (98-107) Carbon Dioxide Level 27 mmol/L (21-32) Anion Gap 9 (6-14) Blood Urea Nitrogen 11 mg/dL (7-20) Creatinine 0.9 mg/dL (0.6-1.0) Estimated GFR (Cockcroft-Gault) 80.5 BUN/Creatinine Ratio 12 (6-20) Glucose Level 104 mg/dL (70-99) Calcium Level 9.2 mg/dL (8.5-10.1) Magnesium Level 2.0 mg/dL (1.8-2.4) Total Bilirubin 0.3 mg/dL (0.2-1.0) Aspartate Amino Transf (AST/SGOT) 21 U/L (15-37) Alanine Aminotransferase (ALT/SGPT) 26 U/L (14-59) Alkaline Phosphatase 65 U/L (46-116) Total Protein 7.7 g/dL (6.4-8.2) Albumin 3.7 g/dL (3.4-5.0) Albumin/Globulin Ratio 0.9 (1.0-1.7) Lipase 98 U/L (73-393) Images Images Chest radiograph: No consolidation or pleural effusion. Normal heart size. No pneumothorax. Impression: 1. No acute cardiopulmonary process. CT head: No intracranial hemorrhage. No mass effect. No hydrocephalus. Extra-axial spaces are unremarkable. Imaged orbits are unremarkable. Imaged paranasal sinuses and mastoid air cells are clear. No acute calvarial fracture. Impression: 1. No acute intracranial abnormality. CT abdomen/pelvis: Abdominal aorta is not aneurysmal. Low-density lesion is again seen within the right lobe of the liver measures approximately 35 x 29 mm. Postcholecystectomy changes. No peripancreatic fluid collection. Spleen is unremarkable. No left-sided hydronephrosis. Urinary bladder is largely decompressed. No right-sided hydronephrosis. Tubal occlusion device at the uterus bilaterally. No dilated loops of bowel to suggest obstruction. The left iliac wing there is a 2 cm sclerotic lesion again seen which could be from bone island. There are some smaller probable bone islands. IMPRESSION: * No hydronephrosis. * No dilated loops of bowel to suggest obstruction. * Repeat demonstration of low-density lesion in the right lobe the liver. Given the lack of significant growth the most likely cause is a benign causes such as hemangioma but nonspecific noncontrast CT appearance. VTE Prophylaxis Ordered VTE Prophylaxis Devices: Yes VTE Pharmacological Prophylaxi: No Assessment/Plan Assessment/Plan A/P: Brain fog -no actual focal neurologic deficits is able to find words it just takes time. This been documented with a number of COVID-19 patients and patient has been reassured that she should continue aspirin and lisinopril. Gastroesophageal reflux disease Anemia - stable Anxiety with depression - outpatient psych counseling H/o COVID 19 on 05/02/2020 Dispo - home with outpatient follow up. Does not meet inpatient admission. Patient expresses understanding and is grateful. Bedside physical examination displays no focal neurologic deficit she is able to type right and speak clearly in exhibit understanding. She is slow to find some words but does note just takes her time. Of advised her that she should continue her aspirin at home and her lisinopril and follow-up with cardiology which she is doing next week and follow-up with gastroenterology for what is a scheduled colonoscopy here in the near future. Justifications for Admission Other Justification COVID infection SAAD SIMPSON MD Jun 13, 2020 16:14
[2020-06-13] MEDS ORDERED: ASPIRIN CHEWABLE 81 MG TABLET. PO ONE (16:15)
[2020-06-13] MEDS ORDERED: ONDANSETRON PF 4 MG/2 ML VIAL. IV PRN (16:15)
[2020-06-13 16:27] LABS: BARBITURATES NEG (NEG); BENZODIAZEPINES NEG (NEG); CANNABINOIDS NEG (NEG); COCAINE NEG (NEG); METHADONE NEG (NEG); OPIATES NEG (NEG); PHENCYCLIDINE NEG (NEG)
[2020-06-13 16:38] LABS: AMPHETAMINE/METHAMPHETAMINE NEG (NEG)
[2020-06-13 18:00] VITALS: BP 138/78
== END 2020-06-13 19:25 | disposition home or self-care (01) ==
LOC: ER 12:37
DX: R47.01 Aphasia (principal); R41.0 Disorientation, unspecified; K92.1 Melena; R11.0 Nausea
CPT/HCPCS: 36415; 70450; 71045; 74176; 80053; 80307; 81001; 83690; 83735; 84484; 85025; 87086; 96360; 99285; J7030

== ENCOUNTER 2020-06-15 15:22 | Observation (INO) | payer OTHER ==
[~2020-06-15] VITALS: Ht 162.6 cm; Wt 97.8 kg
[~2020-06-15 15:22] MED LIST changes: -LISI-334 PO; +LISI10TA16 PO; -LISI10TA2 PO; +LISI20TA18 PO
--- NOTE | 2020-06-15 15:53 | RAD ---
EXAM: Chest, single view. HISTORY: Chest pain. COMPARISON: None. FINDINGS: A frontal view of the chest is obtained. There is no infiltrate, pleural effusion or pneumo thorax. The heart is normal in size. IMPRESSION: No acute pulmonary finding. Electronically signed by: Zaira Silva MD (06/15/2020 3:50 PM) [id number]
[2020-06-15 16:24] LABS: BASO # 0.1 x10^3/uL (0.0-0.2); BASO % 1 % (0-3); EOS # 0.1 x10^3/uL (0.0-0.7); EOS % 1 % (0-3); HEMATOCRIT 37.3 % (36.0-47.0); HEMOGLOBIN 12.3 g/dL (12.0-15.5); LYMPH # 1.9 x10^3/uL (1.0-4.8); LYMPH % 18 % (24-48); MEAN CORPUSCULAR HEMOGLOBIN 28 pg (25-35); MEAN CORPUSCULAR HGB CONC 33 g/dL (31-37); MEAN CORPUSCULAR VOLUME 85 fL (79-100); MONO # 0.6 x10^3/uL (0.0-1.1); MONO % 6 % (0-9); NEUT # 7.6 x10^3/uL (1.8-7.7); NEUT % 74 % (31-73); PLATELET COUNT 364 x10^3/uL (140-400); RED BLOOD COUNT 4.39 x10^6/uL (3.50-5.40); RED CELL DISTRIBUTION WIDTH 16.7 % (11.5-14.5); WHITE BLOOD COUNT 10.4 x10^3/uL (4.0-11.0)
[2020-06-15 16:28] LABS: BILIRUBIN,URINE NEGATIVE (NEG); CLARITY,URINE CLEAR; COLOR,URINE YELLOW; NITRITE,URINE NEGATIVE (NEG); PH,URINE 6.5 (<5.0-8.0); PROTEIN,URINE NEGATIVE (NEG-TRACE); UROBILINOGEN,URINE 0.2 mg/dL (0.2 mg/dL)
[2020-06-15 16:33] LABS: BACTERIA,URINE FEW /HPF (0-FEW); RBC,URINE OCC /HPF (0-2)
--- NOTE | 2020-06-15 16:36 | EKG ---
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
[2020-06-15 16:38] LABS: CALCIUM 8.8 mg/dL (8.5-10.1); CREATININE 0.8 mg/dL (0.6-1.0); GFR 92.2; POTASSIUM 3.5 mmol/L (3.5-5.1)
[2020-06-15 16:44] LABS: ALBUMIN 3.5 g/dL (3.4-5.0); TOTAL BILIRUBIN 0.2 mg/dL (0.2-1.0); TOTAL PROTEIN 7.1 g/dL (6.4-8.2)
--- NOTE | 2020-06-15 16:59 | PDOC1 ---
History and Physical Date of Admission Date of Admission DATE: 06/15/20 TIME: 16:59 Identification/Chief Complaint Chief Complaint 49 year old AA female who presented to the emergency department with complaints of substernal chest pain that radiated to her left arm today. pos COVID-19 in April 2020 and she has had problems with her blood pressure and intermittent chest pain since today the chest pain was different and it now has radiated to her left arm. She denies any nausea, vomiting or shortness of breath, or diaphoresis with the pain. denies any fever, increased shortness of breath, lower extremity swelling, or palpitations. She states that she called EMS reports that she was given 4 baby aspirin and 1 nitro by the outgoing inspector. chest pain went away after taking those medications. butt still has chest tightness denies any weakness, she states that her left arm felt unusual Past Medical History Past Medical History Past Medical/Surgical History: PMH/PSH: Past Medical History: No Pertinent History Past Surgical History: No Surgical History Allergies: Allergies: Coded Allergies: Penicillins (Verified Allergy, Severe, Anaphylaxis, 02/25/14) shellfish derived (Verified Allergy, Severe, Anaphylaxis, 02/25/14) iodine (Verified Adverse Reaction, Intermediate, NAUSEA, DIARRHEA, 02/26/14) Family History: Family History: Reviewed and none pertinent reported/ obesity Social History: Social History: Smoking Status: Never Smoker Alcohol Use: Occasionally Cardiovascular: HTN Pulmonary: Bronchitis Heme/Onc: Anemia NOS Hepatobiliary: No pertinent hx Psych: Anxiety, Depression Infectious disease: No pertinent hx Renal/: No pertinent hx Past Surgical History Past Surgical History: Cholecystectomy, Hernia Repair Family History Family History: Hypertension Social History Smoke: No ALCOHOL: rare Drugs: None Current Medications Current Medications Active Scripts Active Reported Lisinopril 20 Mg Tablet 1 Tab PO DAILY Aspirin 81 Mg Tab.chew 1 Tab PO DAILY Iron (Ferrous Sulfate) 325 Mg Tablet 1 Tab PO DAILY 30 Days Vitamin B-12 (Cyanocobalamin (Vitamin B-12)) 500 Mcg Tablet 1 Tab PO DAILY 30 Days Ibuprofen 800 Mg Tablet 1 Tab PO PRN Q6-8HRS PRN Epipen 2-Dario (Epinephrine) 0.3 Mg/0.3 Ml Auto.injct 0.3 Mg IJ Allergies Allergies: Coded Allergies: Penicillins (Verified Allergy, Severe, Anaphylaxis, 02/25/14) shellfish derived (Verified Allergy, Severe, Anaphylaxis, 02/25/14) iodine (Verified Adverse Reaction, Intermediate, NAUSEA, DIARRHEA, 02/26/14) ROS Review of System ROS: Review of Systems REVIEW OF SYSTEMS: GENERAL: Denies weakness SKIN: No bruising, hair changes or rashes. EYES: No blurred, double or loss of vision. NOSE AND THROAT: No history of nosebleeds, hoarseness or sore throat. HEART: pos chest pain LUNGS: Denies cough, hemoptysis, wheezing or shortness of breath. GASTROINTESTINAL: Denies changes in appetite, nausea, vomiting, diarrhea or constipation. GENITOURINARY: No history of frequency, urgency, hesitancy or nocturia. NEUROLOGIC: Denies history of numbness, tingling, or tremor. PSYCHIATRIC: No history of panic, anxiety or depression. ENDOCRINE: No history of heat or cold intolerance, polyuria or polydipsia. EXTREMITIES: Denies joint pain, pain on walking or stiffness. 14 pt ros otherwise neg General: YES: Fatigue, Malaise PSYCHOLOGICAL ROS: YES: Anxiety, Disorientation, Memory difficulties HEENT: YES: Heacaches Hematological and Lymphatic: No: Bleeding Problems, Blood Clots, Blood Transfusions, Brusing, Night Sweats, Pallor, Swollen Lymph Nodes, Other Respiratory: No: Cough, Hemoptysis, Orthopnea, Pleuritic Pain, Shortness of breath, SOB with excertion, Sputum Changes, Stridor, Tachypnea, Wheezing, Other Cardiovascular: yes Chest Pain; No Palpitations, No Orthopnea, No Paroxysmal Noc. Dyspnea, No Edema, No Lt Headedness, No Other Musculoskeletal: Yes Joint Stiffness Neurological: Yes Confusion, Yes Headaches, Yes Numbness/Tingling Physical Exam Physical Exam Physcial Exam: GEN: No apparent distress. Alert and oriented HEENT: Normal cephalic, atraumatic, external auditory canals are patent EYES: Extraocular muscles are intact, pupil are equally round and reactive to light and accommodation MUSCULOSKELETAL: Well developed , well nourished, good range of motion ENDOCRINE: No thyromegaly was palpated LYMPHATICS: No cervical chain or axillary nodes were noted HEMATOPOIETIC: No bruising NECK: Supple, no JVD, no thyromegaly was noted LUNGS: Clear to auscultation in all lung noble without rhonchi or wheezing HEART: RRR, S!, S2 present. Peripheral pulses intact, no obvious murmurs noted ABDOMEN: Soft, nontender. Positive bowel sounds, no organomegaly, normal bowel sounds EXTREMITIES: Without clubbing, cyanosis, or edema. Pedal pulses intact. Negative Homans sign NEUROLOGIC: Normal speech and tone. A&O x 3, moves all extremities, no obvious focal deficits PSYCHIATRIC: Normal affect, normal mood. Stable SKIN: No ulcerations or rashes, good skin turgor, no jaundice VASCULAR: Good capillary refill, neurovascular bundle appears to be intact General: Alert, Oriented X3, Cooperative, No acute distress HEENT: Atraumatic Lungs: Clear to auscultation, Normal air movement Heart: RRR, no thrills, no gallops, no murmurs Breasts: Not examined Abdomen: Normal bowel sounds, Soft Rectal Exam: not examined Extremities: No cyanosis Skin: No significant lesion Neuro: Normal speech, Strength at 5/5 X4 ext, Sensation intact, Cranial nerves 3-12 NL Psych/Mental Status: Mental status NL, Mood NL Vitals Vitals Vital Signs Date Time Temp Pulse Resp B/P (MAP) Pulse Ox O2 Delivery O2 Flow Rate FiO2 06/15/20 15:40 97.4 60 18 136/65 (88) 97 Room Air 97.4 Labs Labs Laboratory Tests Test 06/15/20 16:00 06/15/20 16:10 White Blood Count 10.4 x10^3/uL (4.0-11.0) Red Blood Count 4.39 x10^6/uL (3.50-5.40) Hemoglobin 12.3 g/dL (12.0-15.5) Hematocrit 37.3 % (36.0-47.0) Mean Corpuscular Volume 85 fL (79-100) Mean Corpuscular Hemoglobin 28 pg (25-35) Mean Corpuscular Hemoglobin Concent 33 g/dL (31-37) Red Cell Distribution Width 16.7 % (11.5-14.5) Platelet Count 364 x10^3/uL (140-400) Neutrophils (%) (Auto) 74 % (31-73) Lymphocytes (%) (Auto) 18 % (24-48) Monocytes (%) (Auto) 6 % (0-9) Eosinophils (%) (Auto) 1 % (0-3) Basophils (%) (Auto) 1 % (0-3) Neutrophils # (Auto) 7.6 x10^3/uL (1.8-7.7) Lymphocytes # (Auto) 1.9 x10^3/uL (1.0-4.8) Monocytes # (Auto) 0.6 x10^3/uL (0.0-1.1) Eosinophils # (Auto) 0.1 x10^3/uL (0.0-0.7) Basophils # (Auto) 0.1 x10^3/uL (0.0-0.2) D-Dimer (Rhonda) < 0.27 ug/mlFEU Sodium Level 141 mmol/L (136-145) Potassium Level 3.5 mmol/L (3.5-5.1) Chloride Level 103 mmol/L (98-107) Carbon Dioxide Level 25 mmol/L (21-32) Anion Gap 13 (6-14) Blood Urea Nitrogen 7 mg/dL (7-20) Creatinine 0.8 mg/dL (0.6-1.0) Estimated GFR (Cockcroft-Gault) 92.2 BUN/Creatinine Ratio 9 (6-20) Glucose Level 92 mg/dL (70-99) Calcium Level 8.8 mg/dL (8.5-10.1) Magnesium Level 2.0 mg/dL (1.8-2.4) Total Bilirubin 0.2 mg/dL (0.2-1.0) Aspartate Amino Transf (AST/SGOT) 17 U/L (15-37) Alanine Aminotransferase (ALT/SGPT) 22 U/L (14-59) Alkaline Phosphatase 62 U/L (46-116) Creatine Kinase 122 U/L (26-192) Creatine Kinase MB (Mass) 0.7 ng/mL (0.0-3.6) Creatine Kinase MB Relative Index 0.6 % (0-4) Troponin I Quantitative 0.052 ng/mL (0.000-0.055) GW-Mxu-P-Type Natriuretic Peptide 43 pg/mL (0-124) Total Protein 7.1 g/dL (6.4-8.2) Albumin 3.5 g/dL (3.4-5.0) Albumin/Globulin Ratio 1.0 (1.0-1.7) Lipase 123 U/L (73-393) Urine Collection Type Unknown Urine Color Yellow Urine Clarity Clear Urine pH 6.5 (<5.0-8.0) Urine Specific [place] 1.015 (1.000-1.030) Urine Protein Negative mg/dL (NEG-TRACE) Urine Glucose (UA) Negative mg/dL (NEG) Urine Ketones (Stick) Negative mg/dL (NEG) Urine Blood Negative (NEG) Urine Nitrite Negative (NEG) Urine Bilirubin Negative (NEG) Urine Urobilinogen Dipstick 0.2 mg/dL (0.2 mg/dL) Urine Leukocyte Esterase Trace (NEG) Urine RBC Occ /HPF (0-2) Urine WBC 1-4 /HPF (0-4) Urine Squamous Epithelial Cells Mod /LPF Urine Bacteria Few /HPF (0-FEW) Urine Mucus Slight /LPF Laboratory Tests Test 06/15/20 16:00 06/15/20 16:10 White Blood Count 10.4 x10^3/uL (4.0-11.0) Red Blood Count 4.39 x10^6/uL (3.50-5.40) Hemoglobin 12.3 g/dL (12.0-15.5) Hematocrit 37.3 % (36.0-47.0) Mean Corpuscular Volume 85 fL (79-100) Mean Corpuscular Hemoglobin 28 pg (25-35) Mean Corpuscular Hemoglobin Concent 33 g/dL (31-37) Red Cell Distribution Width 16.7 % (11.5-14.5) Platelet Count 364 x10^3/uL (140-400) Neutrophils (%) (Auto) 74 % (31-73) Lymphocytes (%) (Auto) 18 % (24-48) Monocytes (%) (Auto) 6 % (0-9) Eosinophils (%) (Auto) 1 % (0-3) Basophils (%) (Auto) 1 % (0-3) Neutrophils # (Auto) 7.6 x10^3/uL (1.8-7.7) Lymphocytes # (Auto) 1.9 x10^3/uL (1.0-4.8) Monocytes # (Auto) 0.6 x10^3/uL (0.0-1.1) Eosinophils # (Auto) 0.1 x10^3/uL (0.0-0.7) Basophils # (Auto) 0.1 x10^3/uL (0.0-0.2) D-Dimer (Rhonda) < 0.27 ug/mlFEU Sodium Level 141 mmol/L (136-145) Potassium Level 3.5 mmol/L (3.5-5.1) Chloride Level 103 mmol/L (98-107) Carbon Dioxide Level 25 mmol/L (21-32) Anion Gap 13 (6-14) Blood Urea Nitrogen 7 mg/dL (7-20) Creatinine 0.8 mg/dL (0.6-1.0) Estimated GFR (Cockcroft-Gault) 92.2 BUN/Creatinine Ratio 9 (6-20) Glucose Level 92 mg/dL (70-99) Calcium Level 8.8 mg/dL (8.5-10.1) Magnesium Level 2.0 mg/dL (1.8-2.4) Total Bilirubin 0.2 mg/dL (0.2-1.0) Aspartate Amino Transf (AST/SGOT) 17 U/L (15-37) Alanine Aminotransferase (ALT/SGPT) 22 U/L (14-59) Alkaline Phosphatase 62 U/L (46-116) Creatine Kinase 122 U/L (26-192) Creatine Kinase MB (Mass) 0.7 ng/mL (0.0-3.6) Creatine Kinase MB Relative Index 0.6 % (0-4) Troponin I Quantitative 0.052 ng/mL (0.000-0.055) SB-Sdn-A-Type Natriuretic Peptide 43 pg/mL (0-124) Total Protein 7.1 g/dL (6.4-8.2) Albumin 3.5 g/dL (3.4-5.0) Albumin/Globulin Ratio 1.0 (1.0-1.7) Lipase 123 U/L (73-393) Urine Collection Type Unknown Urine Color Yellow Urine Clarity Clear Urine pH 6.5 (<5.0-8.0) Urine Specific [place] 1.015 (1.000-1.030) Urine Protein Negative mg/dL (NEG-TRACE) Urine Glucose (UA) Negative mg/dL (NEG) Urine Ketones (Stick) Negative mg/dL (NEG) Urine Blood Negative (NEG) Urine Nitrite Negative (NEG) Urine Bilirubin Negative (NEG) Urine Urobilinogen Dipstick 0.2 mg/dL (0.2 mg/dL) Urine Leukocyte Esterase Trace (NEG) Urine RBC Occ /HPF (0-2) Urine WBC 1-4 /HPF (0-4) Urine Squamous Epithelial Cells Mod /LPF Urine Bacteria Few /HPF (0-FEW) Urine Mucus Slight /LPF VTE Prophylaxis Ordered VTE Prophylaxis Devices: Yes VTE Pharmacological Prophylaxi: No Assessment/Plan Assessment/Plan Assessment 1. myalgias, fatigue; COVID + apr 2020, post covid syndrome with neuropathy 2. Chest pain, atypical. EKG without significant acute changes. LDL 87 hx 3. Accelerated hypertension; 4. Mild troponin elevation; t probable type II, demand ischemia in setting of COVID 5. morbid obesity plan observation admit trend troponin i consult cardiology ASA therapy lisinopril for better BP control Outpatient echo to assess LV systolic function when recovered from COVID Consider outpatient ischemic evaluation Follow up Dr. Gutierrez as scheduled Supportive care dvt prophylaxis lovenox protonix 40 mg po daily Justifications for Admission Other Justification COVID infection MICAELA NEAL MD Jun 15, 2020 16:59
--- NOTE | 2020-06-15 17:08 | ED.ADGEN ---
Past Medical History Past Medical History: Hypertension Additional Past Medical Histor: COVID-19 in April 2020 Past Surgical History: No Surgical History Smoking Status: Never Smoker Alcohol Use: Occasionally General Adult EDM: Chief Complaint: CHEST PAIN HPI: HPI: Patient is a 49 year old AA female who presents to the emergency department with complaints of substernal chest pain that radiated to her left arm today. Patient reports she had a COVID-19 in April 2020 and she has had problems with her blood pressure and intermittent chest pain since then. Patient states that today the chest pain was different and it now radiated to her left arm. She denies any nausea, vomiting or shortness of breath, or diaphoresis with the pain. Patient denies any fever, increased shortness of breath, lower extremity swelling, or palpitations. She states that she called EMS reports that she was given 4 baby aspirin and 1 nitro by the seafood harvester. Patient states that her chest pain went away after taking those medications. She denies any weakness, she states that her left arm felt numb and tingly. She currently denies any pain. Review of Systems: Review of Systems: Complete ROS is negative unless otherwise noted in HPI. Allergies: Allergies: Allergies Coded Allergies Type Severity Reaction Last Updated Verified Penicillins Allergy Severe Anaphylaxis 02/25/14 Yes shellfish derived Allergy Severe Anaphylaxis 02/25/14 Yes iodine Adverse Reaction Intermediate NAUSEA, DIARRHEA 02/26/14 Yes Physical Exam: PE: See Above Constitutional: Well developed, well nourished, no acute distress, non-toxic appearance. [] HENT: Normocephalic, atraumatic, bilateral external ears normal, nose normal. [] Eyes: PERRLA, EOMI, conjunctiva normal, no discharge. [] Neck: Normal range of motion, no stridor. [] Cardiovascular:Heart rate regular rhythm Lungs & Thorax: Respirations even and unlabored, no retractions, no respiratory distress Abdomen: soft, no tenderness Skin: Warm, dry, no erythema, no rash. [] Extremities: No cyanosis, ROM intact, no edema. [] Neurologic: Alert and oriented X 3, no focal deficits noted. [] Psychologic: Affect normal, judgement normal, mood normal. [] Current Patient Data: Labs: Laboratory Tests Test 06/15/20 16:00 06/15/20 16:10 White Blood Count 10.4 x10^3/uL (4.0-11.0) Red Blood Count 4.39 x10^6/uL (3.50-5.40) Hemoglobin 12.3 g/dL (12.0-15.5) Hematocrit 37.3 % (36.0-47.0) Mean Corpuscular Volume 85 fL (79-100) Mean Corpuscular Hemoglobin 28 pg (25-35) Mean Corpuscular Hemoglobin Concent 33 g/dL (31-37) Red Cell Distribution Width 16.7 % (11.5-14.5) H Platelet Count 364 x10^3/uL (140-400) Neutrophils (%) (Auto) 74 % (31-73) H Lymphocytes (%) (Auto) 18 % (24-48) L Monocytes (%) (Auto) 6 % (0-9) Eosinophils (%) (Auto) 1 % (0-3) Basophils (%) (Auto) 1 % (0-3) Neutrophils # (Auto) 7.6 x10^3/uL (1.8-7.7) Lymphocytes # (Auto) 1.9 x10^3/uL (1.0-4.8) Monocytes # (Auto) 0.6 x10^3/uL (0.0-1.1) Eosinophils # (Auto) 0.1 x10^3/uL (0.0-0.7) Basophils # (Auto) 0.1 x10^3/uL (0.0-0.2) D-Dimer (Rhonda) < 0.27 ug/mlFEU Sodium Level 141 mmol/L (136-145) Potassium Level 3.5 mmol/L (3.5-5.1) Chloride Level 103 mmol/L (98-107) Carbon Dioxide Level 25 mmol/L (21-32) Anion Gap 13 (6-14) Blood Urea Nitrogen 7 mg/dL (7-20) Creatinine 0.8 mg/dL (0.6-1.0) Estimated GFR (Cockcroft-Gault) 92.2 BUN/Creatinine Ratio 9 (6-20) Glucose Level 92 mg/dL (70-99) Calcium Level 8.8 mg/dL (8.5-10.1) Magnesium Level 2.0 mg/dL (1.8-2.4) Total Bilirubin 0.2 mg/dL (0.2-1.0) Aspartate Amino Transferase (AST) 17 U/L (15-37) Alanine Aminotransferase (ALT) 22 U/L (14-59) Alkaline Phosphatase 62 U/L (46-116) Creatine Kinase 122 U/L (26-192) Creatine Kinase MB (Mass) 0.7 ng/mL (0.0-3.6) Creatine Kinase MB Relative Index 0.6 % (0-4) Troponin I Quantitative 0.052 ng/mL (0.000-0.055) ZZ-Gue-B-Type Natriuretic Peptide 43 pg/mL (0-124) Total Protein 7.1 g/dL (6.4-8.2) Albumin 3.5 g/dL (3.4-5.0) Albumin/Globulin Ratio 1.0 (1.0-1.7) Lipase 123 U/L (73-393) Urine Collection Type Unknown Urine Color Yellow Urine Clarity Clear Urine pH 6.5 (<5.0-8.0) Urine Specific [place] 1.015 (1.000-1.030) Urine Protein Negative mg/dL (NEG-TRACE) Urine Glucose (UA) Negative mg/dL (NEG) Urine Ketones (Stick) Negative mg/dL (NEG) Urine Blood Negative (NEG) Urine Nitrite Negative (NEG) Urine Bilirubin Negative (NEG) Urine Urobilinogen Dipstick 0.2 mg/dL (0.2 mg/dL) Urine Leukocyte Esterase Trace (NEG) Urine RBC Occ /HPF (0-2) Urine WBC 1-4 /HPF (0-4) Urine Squamous Epithelial Cells Mod /LPF Urine Bacteria Few /HPF (0-FEW) Urine Mucus Slight /LPF Laboratory Tests 06/15/20 16:00 Laboratory Tests 06/15/20 16:00 Vital Signs: Vital Signs Date Time Temp Pulse Resp B/P (MAP) Pulse Ox O2 Delivery O2 Flow Rate FiO2 06/15/20 15:40 97.4 60 18 136/65 (88) 97 Room Air 97.4 EKG: EK-sinus rhythm, rate 62, QRST contour abnormality consider anterior lateral myocardial damage, no STEMI, read by Dr. Keyes. [] Heart Score: HEART Score for Chest Pain: HEART Score for Chest Pain Response (Comments) Value History Moderately Suspicious 1 ECG Normal 0 Age >45 - < 65 1 Risk Factors >3 Risk Factors or Hx CAD 2 Troponin < Normal Limit 0 Total 4 Risk Factors: Risk Factors: DM, Current or recent (<one month) smoker, HTN, HLP, family history of CAD, obesity. Risk Scores: Score 0 - 3: 2.5% MACE over next 6 weeks - Discharge Home Score 4 - 6: 20.3% MACE over next 6 weeks - Admit for Clinical Observation Score 7 - 10: 72.7% MACE over next 6 weeks - Early Invasive Strategies Radiology/Procedures: Radiology/Procedures: PROCEDURE: CHEST AP ONLY EXAM: Chest, single view. HISTORY: Chest pain. COMPARISON: None. FINDINGS: A frontal view of the chest is obtained. There is no infiltrate, pleural effusion or pneumothorax. The heart is normal in size. IMPRESSION: No acute pulmonary finding. [] Course & Med Decision Making: Course & Med Decision Making Pertinent Labs and Imaging studies reviewed. (See chart for details) [id number]-spoke with Dr. Nicole who is the admitting physician, and care was assumed following discussion of patient. Will admit patient for chest pain Patient's vital signs stable. Patient remains afebrile, appears nontoxic, respirations even and unlabored. Patient will be admitted to the CVC floor. Patient's case and plan of care also discussed with Dr. Keyes [] Daniel Disclaimer: Daniel Disclaimer: This electronic medical record was generated, in whole or in part, using a voice recognition dictation system. Departure Departure Impression: Primary Impression: Chest pain Disposition: ADMITTED INPT THIS HOSP Admitting Physician: ELIECER (Corey) Condition: STABLE Referrals: IESHA HUFFMAN MD (PCP) Problem Qualifiers Primary Impression: Chest pain Chest pain type: unspecified Qualified Codes: R07.9 - Chest pain, unspecified YASMEEN CHEUNG [employer] PROGRAM MANAGER Jun 15, 2020 17:08
[2020-06-15] MEDS ORDERED: ONDANSETRON PF 4 MG/2 ML VIAL. IV PRN (17:15)
[2020-06-15] MEDS ORDERED: SODIUM PHOSPHATES 19/7GM 133 ML ENEMA. PR PRN (17:15)
[2020-06-15] MEDS ORDERED: ALBUTEROL SULFATE 2.5 MG/3 ML NEBU. NEB PRN (17:15)
[2020-06-15] MEDS ORDERED: LORazepam 0.5 MG TABLET PO PRN (17:15)
[2020-06-15] MEDS ORDERED: 0.9 % SODIUM CHLORIDE 10 ML DISP.SYRIN. IV PRN (17:15)
[2020-06-15] MEDS ORDERED: ZOLPIDEM 5 MG TABLET. PO PRN (17:15)
[2020-06-15] MEDS ORDERED: ACETAMINOPHEN 325 MG TABLET. PO PRN (17:15)
[2020-06-15] MEDS ORDERED: DOCUSATE SODIUM 100 MG CAPSULE. PO PRN (17:15)
[2020-06-15] MEDS ORDERED: guaiFENesin ORAL 200 MG/10 ML LIQUID. PO PRN (17:15)
[2020-06-15] MEDS ORDERED: diphenhydrAMINE 50 MG/ML VIAL IVP PRN (17:15)
[2020-06-15] MEDS ORDERED: cloNIDine HCL 0.1 MG TABLET PO PRN (17:15)
[2020-06-15] MEDS ORDERED: MAG HYDROX/ALUMINUM HYD/SIMETH 30 ML ORAL.SUSP PO PRN (17:15)
[2020-06-15] MEDS ORDERED: NITROGLYCERIN SUBLINGUAL 0.4 MG BOTTLE OF 25. SL PRN (18:45)
[2020-06-15] MEDS ORDERED: ASPIRIN 325 MG TABLET PO ONE (19:00)
[2020-06-15 20:36] VITALS: BP 135/77
[2020-06-15] MEDS ORDERED: AMLO10TA4 PO (20:52)
[2020-06-15] MEDS: ENOXAPARIN 40 MG/0.4 ML SYRINGE. SQ SCH (21:36)
--- NOTE | 2020-06-15 21:39 | NUR ---
pt admitted to room 211 with chest pain a/ox3. pt denies chest pain at this time. assessment complete, oriented to staff unit and poc. call light in reach will cont to monitor pt status and safety pmrn
[2020-06-15 22:57] VITALS: BP 103/51
[2020-06-16 03:06] VITALS: BP 118/60
[2020-06-16 06:38] LABS: CHOLESTEROL/HDL RATIO 2.4
[2020-06-16 07:00] VITALS: BP 147/65
--- NOTE | 2020-06-16 09:07 | PDOC ---
[employer] PROGRESS NOTE Date of Service DOS: DATE: 06/16/20 TIME: 09:04 Chief Complaint Chief Complaint Chest pain History of Present Illness History of Present Illness 06/16/2020 -Patient seen and examined -PRAVIN RN -Chart reviewed Vitals/I&O Vitals/I&O: Vital Signs Date Time Temp Pulse Resp B/P (MAP) Pulse Ox O2 Delivery O2 Flow Rate FiO2 06/16/20 08:12 Room Air 06/16/20 07:00 98.5 60 16 147/65 (92) 100 98.5 I & O 06/15/20 06/15/20 06/16/20 15:00 23:00 07:00 Intake Total 200 ml Output Total 900 ml Balance -700 ml Physical Exam General: Alert, Oriented X3, Cooperative, No acute distress Heart: Regular rate Lungs: Wheezing, Crackles Abdomen: Normal bowel sounds, Soft, No tenderness, No hepatosplenomegaly Extremities: No clubbing, No cyanosis Skin: No rashes, No breakdown, No significant lesion Labs Labs: Laboratory Tests Test 06/15/20 16:00 06/15/20 16:10 06/15/20 19:48 06/16/20 00:55 White Blood Count 10.4 x10^3/uL (4.0-11.0) Red Blood Count 4.39 x10^6/uL (3.50-5.40) Hemoglobin 12.3 g/dL (12.0-15.5) Hematocrit 37.3 % (36.0-47.0) Mean Corpuscular Volume 85 fL (79-100) Mean Corpuscular Hemoglobin 28 pg (25-35) Mean Corpuscular Hemoglobin Concent 33 g/dL (31-37) Red Cell Distribution Width 16.7 % (11.5-14.5) Platelet Count 364 x10^3/uL (140-400) Neutrophils (%) (Auto) 74 % (31-73) Lymphocytes (%) (Auto) 18 % (24-48) Monocytes (%) (Auto) 6 % (0-9) Eosinophils (%) (Auto) 1 % (0-3) Basophils (%) (Auto) 1 % (0-3) Neutrophils # (Auto) 7.6 x10^3/uL (1.8-7.7) Lymphocytes # (Auto) 1.9 x10^3/uL (1.0-4.8) Monocytes # (Auto) 0.6 x10^3/uL (0.0-1.1) Eosinophils # (Auto) 0.1 x10^3/uL (0.0-0.7) Basophils # (Auto) 0.1 x10^3/uL (0.0-0.2) D-Dimer (Rhonda) < 0.27 ug/mlFEU Sodium Level 141 mmol/L (136-145) Potassium Level 3.5 mmol/L (3.5-5.1) Chloride Level 103 mmol/L (98-107) Carbon Dioxide Level 25 mmol/L (21-32) Anion Gap 13 (6-14) Blood Urea Nitrogen 7 mg/dL (7-20) Creatinine 0.8 mg/dL (0.6-1.0) Estimated GFR (Cockcroft-Gault) 92.2 BUN/Creatinine Ratio 9 (6-20) Glucose Level 92 mg/dL (70-99) Calcium Level 8.8 mg/dL (8.5-10.1) Magnesium Level 2.0 mg/dL (1.8-2.4) Total Bilirubin 0.2 mg/dL (0.2-1.0) Aspartate Amino Transf (AST/SGOT) 17 U/L (15-37) Alanine Aminotransferase (ALT/SGPT) 22 U/L (14-59) Alkaline Phosphatase 62 U/L (46-116) Creatine Kinase 122 U/L (26-192) Creatine Kinase MB (Mass) 0.7 ng/mL (0.0-3.6) Creatine Kinase MB Relative Index 0.6 % (0-4) Troponin I Quantitative 0.052 ng/mL (0.000-0.055) 0.083 ng/mL (0.000-0.055) 0.095 ng/mL (0.000-0.055) ZF-Zgt-W-Type Natriuretic Peptide 43 pg/mL (0-124) Total Protein 7.1 g/dL (6.4-8.2) Albumin 3.5 g/dL (3.4-5.0) Albumin/Globulin Ratio 1.0 (1.0-1.7) Lipase 123 U/L (73-393) Urine Collection Type Unknown Urine Color Yellow Urine Clarity Clear Urine pH 6.5 (<5.0-8.0) Urine Specific [place] 1.015 (1.000-1.030) Urine Protein Negative mg/dL (NEG-TRACE) Urine Glucose (UA) Negative mg/dL (NEG) Urine Ketones (Stick) Negative mg/dL (NEG) Urine Blood Negative (NEG) Urine Nitrite Negative (NEG) Urine Bilirubin Negative (NEG) Urine Urobilinogen Dipstick 0.2 mg/dL (0.2 mg/dL) Urine Leukocyte Esterase Trace (NEG) Urine RBC Occ /HPF (0-2) Urine WBC 1-4 /HPF (0-4) Urine Squamous Epithelial Cells Mod /LPF Urine Bacteria Few /HPF (0-FEW) Urine Mucus Slight /LPF Test 06/16/20 06:00 Troponin I Quantitative 0.087 ng/mL (0.000-0.055) Triglycerides Level 63 mg/dL (0-150) Cholesterol Level 143 mg/dL (0-200) LDL Cholesterol, Calculated 71 mg/dL (0-100) VLDL Cholesterol, Calculated 13 mg/dL (0-40) Non-HDL Cholesterol Calculated 84 mg/dL (0-129) HDL Cholesterol 59 mg/dL (40-60) Cholesterol/HDL Ratio 2.4 Review of Systems Review of Systems: No clubbing, no ecchymosis Assessment and Plan Assessmemt and Plan 06/16/2020 A: -Demand ischemia in setting of post-COVID -myalgias, fatigue; COVID + apr 2020, post covid syndrome with neuropathy -Accelerated hypertension; -morbid obesity P: Cardiac monitoring Serial Enzymes Serial EKGs Await hooker inspector input DVT prophylaxis OT/PT Home meds Full code Comment Review of Relevant I have reviewed the following items srinath (where applicable) has been applied. Medications: Current Medications Medications (Trade) Dose Ordered Sig/[place] PRN Reason Start Time Stop Time Status Last Admin Dose Admin Enoxaparin Sodium (Lovenox 40mg Syringe) 40 mg Q24H SQ 06/15/20 21:00 06/15/20 21:36 Justifications for Admission Other Justification COVID infection JOSEPHINE JACKSON III DO Jun 16, 2020 09:07
[2020-06-16 09:13] LABS: CALCIUM 9.2 mg/dL (8.5-10.1); CREATININE 0.8 mg/dL (0.6-1.0); GFR 92.2; POTASSIUM 3.9 mmol/L (3.5-5.1)
--- NOTE | 2020-06-16 09:21 | EKG ---
[facility] [address] [place] [address] Test Date: 2020-06-16 Test Time: 09:19:12 Pat Name: KOFI CATHERINE Department: Room: Gender: F Supervisor Gluing: [place] : 1970 Requested By: YASMEEN CHEUNG Order Number: [id number] Reading MD: Measurements Intervals [place] Rate: 59 P: 38 NH: 144 QRS: 24 QRSD: 76 T: 13 QT: 432 QTc: 428 Interpretive Statements SINUS RHYTHM NORMAL ECG RI6.02 Compared to ECG 06/15/2020 15:32:54 No significant changes
[2020-06-16] MEDS ORDERED: PERFLUTREN PROTEIN-A MICROSPHR 0.22 MG/ML 3 ML VIAL. IV ONE ×2 (10:05→10:45)
[2020-06-16 11:00] VITALS: BP 143/83
--- NOTE | 2020-06-16 12:37 | NUR ---
SS following for discharge planning. SS reviewed pt chart and discussed with pt RN. Pt is from home and is currently on room air. PT/OT ordered. Inpatient stress test ordered. SS will continue to follow for discharge planning.
[2020-06-16] MEDS ORDERED: REGADENOSON 0.4 MG/5 ML DISP.SYRIN. IV ONE (13:00)
--- NOTE | 2020-06-16 13:39 | PDOC2 ---
CARDIAC CONSULT DATE OF CONSULT Date of Consult DATE: 06/16/20 TIME: 12:45 REASON FOR CONSULT Reason for Consult: Chest pain REFERRING PHYSICIAN Referring Physician: Ozzie SOURCE Source: Chart review, Patient HISTORY OF PRESENT ILLNESS HISTORY OF PRESENT ILLNESS This is a pleasant 49 yo female admitted for complains of chest pain. Reports that she started having chest heaviness the other day. Also reports of left arm flushed feeling and weakness to left arm and left leg. Her chest discomfort is intermittent and on her to ED she was given NTG by EMS and her symptoms were better, She actually was in ED on 06/13/2020 to which she had head CT 06/13/2020 due to slurred speech and her scan was negative and was sent home. 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 She has not had any PFTs yet. Also intermittent she does get this out of body experience like s shadow coming out of her and feeling like "loopy" but denies any recreational drugs and no hx of past CVA. Also has been having some dizzy spells but no passing out and no palpitations. She does have HTN and her BP are labile at times running SBP at 150s and 180s at times and her regimen has been adjusted. Not related to cardiac and neuro she also explained having bloody stool x1 and still have bouts of diarrhea intermittently almost everyday but no significant abdominal pain and no nausea or vomiting. She was told that she will need to be referred to GI for possible colonoscopy. She also told me that she noticed white stringy thing in her stool thinking it may be worms. No hx of PE or CAD PAST MEDICAL HISTORY Cardiovascular: HTN Pulmonary: Other CENTRAL NERVOUS SYSTEM: Other (no pertinent history) GI: GERD Heme/Onc: Anemia NOS Psych: Anxiety Musculoskeletal: Osteoarthritis ENT: No pertinent hx Renal/: No pertinent hx Endocrine: No pertinent hx Dermatology: No pertinent hx PAST SURGICAL HISTORY Past Surgical History: Cholecystectomy, Hernia Repair, Other (bunionectomy) FAMILY HISTORY Family History: Hypertension SOCIAL HISTORY Smoke: No ALCOHOL: none Drugs: None Lives: Alone CURRENT MEDICATIONS CURRENT MEDICATIONS Current Medications Medications (Trade) Dose Ordered Sig/[place] PRN Reason Start Time Stop Time Status Last Admin Dose Admin Enoxaparin Sodium (Lovenox 40mg Syringe) 40 mg Q24H SQ 06/15/20 21:00 06/15/20 21:36 Perflutren Protein Type A Microsphe (Optison) 0.66 mg 1X ONCE IV 06/16/20 10:45 06/16/20 10:46 DC 06/16/20 10:42 ALLERGIES ALLERGIES: Coded Allergies: Penicillins (Verified Allergy, Severe, Anaphylaxis, 02/25/14) shellfish derived (Verified Allergy, Severe, Anaphylaxis, 02/25/14) iodine (Verified Adverse Reaction, Intermediate, NAUSEA, DIARRHEA, 02/26/14) ROS Review of System 14 point ROS evaluated with pertinent positives noted per HPI PHYSICAL EXAM General: Alert, Oriented X3, Cooperative, No acute distress HEENT: Atraumatic, Mucous membr. moist/pink Lungs: Clear to auscultation, Normal air movement Heart: Regular rate (SR), Normal S1, Normal S2, No murmurs Abdomen: Soft, No tenderness Extremities: No cyanosis, No edema Skin: No breakdown, No significant lesion Neuro: Normal speech, Sensation intact Psych/Mental Status: Mental status NL, Mood NL MUSCULOSKELETAL: Osteoarthritic changes both hands VITALS/I&O VITALS/I&O: Vital Signs Date Time Temp Pulse Resp B/P (MAP) Pulse Ox O2 Delivery O2 Flow Rate FiO2 06/16/20 11:00 97.9 92 22 143/83 (103) 99 Room Air 97.9 I & O 06/15/20 06/15/20 06/16/20 15:00 23:00 07:00 Intake Total 200 ml Output Total 900 ml Balance -700 ml LABS Lab: Laboratory Tests Test 06/15/20 16:00 06/15/20 16:10 06/15/20 19:48 06/16/20 00:55 White Blood Count 10.4 x10^3/uL (4.0-11.0) Red Blood Count 4.39 x10^6/uL (3.50-5.40) Hemoglobin 12.3 g/dL (12.0-15.5) Hematocrit 37.3 % (36.0-47.0) Mean Corpuscular Volume 85 fL (79-100) Mean Corpuscular Hemoglobin 28 pg (25-35) Mean Corpuscular Hemoglobin Concent 33 g/dL (31-37) Red Cell Distribution Width 16.7 % (11.5-14.5) H Platelet Count 364 x10^3/uL (140-400) Neutrophils (%) (Auto) 74 % (31-73) H Lymphocytes (%) (Auto) 18 % (24-48) L Monocytes (%) (Auto) 6 % (0-9) Eosinophils (%) (Auto) 1 % (0-3) Basophils (%) (Auto) 1 % (0-3) Neutrophils # (Auto) 7.6 x10^3/uL (1.8-7.7) Lymphocytes # (Auto) 1.9 x10^3/uL (1.0-4.8) Monocytes # (Auto) 0.6 x10^3/uL (0.0-1.1) Eosinophils # (Auto) 0.1 x10^3/uL (0.0-0.7) Basophils # (Auto) 0.1 x10^3/uL (0.0-0.2) D-Dimer (Rhonda) < 0.27 ug/mlFEU Sodium Level 141 mmol/L (136-145) Potassium Level 3.5 mmol/L (3.5-5.1) Chloride Level 103 mmol/L (98-107) Carbon Dioxide Level 25 mmol/L (21-32) Anion Gap 13 (6-14) Blood Urea Nitrogen 7 mg/dL (7-20) Creatinine 0.8 mg/dL (0.6-1.0) Estimated GFR (Cockcroft-Gault) 92.2 BUN/Creatinine Ratio 9 (6-20) Glucose Level 92 mg/dL (70-99) Calcium Level 8.8 mg/dL (8.5-10.1) Magnesium Level 2.0 mg/dL (1.8-2.4) Total Bilirubin 0.2 mg/dL (0.2-1.0) Aspartate Amino Transferase (AST) 17 U/L (15-37) Alanine Aminotransferase (ALT) 22 U/L (14-59) Alkaline Phosphatase 62 U/L (46-116) Creatine Kinase 122 U/L (26-192) Creatine Kinase MB (Mass) 0.7 ng/mL (0.0-3.6) Creatine Kinase MB Relative Index 0.6 % (0-4) Troponin I Quantitative 0.052 ng/mL (0.000-0.055) 0.083 ng/mL (0.000-0.055) 0.095 ng/mL (0.000-0.055) ZE-Xpo-N-Type Natriuretic Peptide 43 pg/mL (0-124) Total Protein 7.1 g/dL (6.4-8.2) Albumin 3.5 g/dL (3.4-5.0) Albumin/Globulin Ratio 1.0 (1.0-1.7) Lipase 123 U/L (73-393) Urine Collection Type Unknown Urine Color Yellow Urine Clarity Clear Urine pH 6.5 (<5.0-8.0) Urine Specific Freeman 1.015 (1.000-1.030) Urine Protein Negative mg/dL (NEG-TRACE) Urine Glucose (UA) Negative mg/dL (NEG) Urine Ketones (Stick) Negative mg/dL (NEG) Urine Blood Negative (NEG) Urine Nitrite Negative (NEG) Urine Bilirubin Negative (NEG) Urine Urobilinogen Dipstick 0.2 mg/dL (0.2 mg/dL) Urine Leukocyte Esterase Trace (NEG) Urine RBC Occ /HPF (0-2) Urine WBC 1-4 /HPF (0-4) Urine Squamous Epithelial Cells Mod /LPF Urine Bacteria Few /HPF (0-FEW) Urine Mucus Slight /LPF Test 06/16/20 06:00 Sodium Level 141 mmol/L (136-145) Potassium Level 3.9 mmol/L (3.5-5.1) Chloride Level 106 mmol/L (98-107) Carbon Dioxide Level 27 mmol/L (21-32) Anion Gap 8 (6-14) Blood Urea Nitrogen 6 mg/dL (7-20) L Creatinine 0.8 mg/dL (0.6-1.0) Estimated GFR (Cockcroft-Gault) 92.2 Glucose Level 93 mg/dL (70-99) Calcium Level 9.2 mg/dL (8.5-10.1) Troponin I Quantitative 0.087 ng/mL (0.000-0.055) Triglycerides Level 63 mg/dL (0-150) Cholesterol Level 143 mg/dL (0-200) LDL Cholesterol, Calculated 71 mg/dL (0-100) VLDL Cholesterol, Calculated 13 mg/dL (0-40) Non-HDL Cholesterol Calculated 84 mg/dL (0-129) HDL Cholesterol 59 mg/dL (40-60) Cholesterol/HDL Ratio 2.4 Thyroid Stimulating Hormone (TSH) 0.558 uIU/mL (0.358-3.74) Laboratory Tests 06/15/20 16:00 Laboratory Tests 06/15/20 16:00 06/16/20 06:00 ASSESSMENT/PLAN ASSESSMENT/PLAN 1. Chest pain: potentially from accelerated HTN 2. Mild troponin elevation: peaked at 0.09 EKG SR without acute changes, poddibly demand mediated. 3. Post covid-19: early April 2020 4. HTN: reported labile at home 5. TIA symptoms vs Covid-19 brain fog vs HTN encephalopathy 6. Obesity 7. Persistent diarrhea with recent hematochezia: Hgb stable, ?parasitic infection but eosinophils is nml. defer to PCP Recommendations 1. Given her persistent trop elevation will proceed with MPI 2. TTE today, FLP 3. Consult Neurology 4. ASA and restart home BP meds and monitor BP trend. TANNER CAI [employer] CONSULTANT Jun 16, 2020 13:39
--- NOTE | 2020-06-16 13:42 | CARD ---
MR#: [id number] Date of Study: 06/16/2020 Ordering Physician: TANNER CAI, Referring Physician: TANNER CAI Tech: Alexandria Thorne [facility] APPROVED REPORT EXAM: Two-dimensional and M-mode echocardiogram with Doppler and color Doppler. Other Information Quality : Good INDICATION Chest Pain Echo Enhancing Agent Agent/Amount Used: Optison 1mL 2D DIMENSIONS RVDd2.8 (2.9-3.5cm)Left Atrium(2D)3.2 (1.6-4.0cm) IVSd1.1 (0.7-1.1cm)Aortic Root(2D)2.7 (2.0-3.7cm) LVDd4.9 (3.9-5.9cm)LVOT Diameter2.0 (1.8-2.4cm) PWd1.1 (0.7-1.1cm)LVDs3.1 (2.5-4.0cm) FS (%) 35.5 %SV71.6 ml Aortic Valve AoV Peak Quintin.162.4cm/sAoV VTI34.7cm AO Peak GR.10.6mmHgLVOT Peak Quintin.117.3cm/s AO Mean GR.5mmHgAVA (VMAX)2.27cm2 CATY (VTI)2.40cm2 Mitral Valve MV E Stnosqtj844.0cm/sMV DECEL ZWLM189if MV A Aiixmxzf19.0cm/sE/A Ratio1.9 Tricuspid Valve TR P. Jbfdxafl289im/sRAP ZPEQPSFZ9adTe TR Peak Gr.35kyXuRQIE60omPo Pulmonary Vein S1 Vcjsahrv54.8cm/sD2 Zyhidzoq76.3cm/s LEFT VENTRICLE The left ventricle is normal size. There is normal left ventricular wall thickness. The left ventricu lar systolic function is normal and the ejection fraction is within normal range. The Ejection Fracti on is 55-60%. There is normal LV segmental wall motion. The left ventricular diastolic function and f illing is normal for age. RIGHT VENTRICLE The right ventricle is normal size. The right ventricular systolic function is normal. ATRIA The left atrium size is normal. The right atrium size is normal. The interatrial septum is intact wit h no evidence for an atrial septal defect or patent foramen ovale as noted on 2-D or Doppler imaging. AORTIC VALVE The aortic valve is normal in structure and function. Doppler and Color Flow revealed no significant aortic regurgitation. There is no significant aortic valvular stenosis. MITRAL VALVE The mitral valve is normal in structure and function. There is no evidence of mitral valve prolapse. There is no mitral valve stenosis. Doppler and Color-flow revealed trace mitral regurgitation. TRICUSPID VALVE The tricuspid valve is normal in structure and function. Doppler and Color Flow revealed trace tricus pid regurgitation. The PA pressure was estimated at 22 mmHg. There is no tricuspid valve stenosis. PULMONIC VALVE The pulmonic valve is not well visualized. Doppler and Color Flow revealed no pulmonic valvular regur gitation. There is no pulmonic valvular stenosis. GREAT VESSELS The aortic root is normal in size. The ascending aorta is normal in size. The IVC is normal in size a nd collapses >50% with inspiration. PERICARDIAL EFFUSION There is no evidence of significant pericardial effusion. Critical Notification Critical Value: No <Conclusion> The left ventricle is normal size. The left ventricular systolic function is normal and the ejection fraction is within normal range. The Ejection Fraction is 55-60%. There is normal LV segmental wall motion. Doppler and Color Flow revealed no significant aortic regurgitation. There is no significant aortic valvular stenosis. Doppler and Color-flow revealed trace mitral regurgitation. Doppler and Color Flow revealed trace tricuspid regurgitation. The PA pressure was estimated at 22 mmHg. Signed by : Amrik Thomas MD Electronically Approved : 06/16/2020 13:42:23
[2020-06-16 14:34] VITALS: BP 123/71
[2020-06-16] MEDS ORDERED: LISINOPRIL 20 MG TABLET PO SCH (15:00)
--- NOTE | 2020-06-16 17:15 | RAD ---
MR#: [id number] Date of Study: 06/16/2020 Ordering Physician: TANNER CAI, Referring Physician: GIANNA TORO Tech: RT Jaylyn Patricia) (N) APPROVED REPORT Test Type: Pharmacological Stress Nurse/Tech: Jasmin Washburn R.N. Test Indications: c/p Cardiac History: htn, obesity Medications: See Electronic Medical Record Medical History: See Electronic Medical Record Resting ECG: SR Resting Heart Rate: 59 bpm Resting Blood Pressure: 144/71mmHg Pretest Chest Pain: No chest pain Nurse/Tech Notes S1S2, lungs CTA Consent: The procedure was explained to the patient in lay terms. Informed consent was witnessed. Jerome eout was entered into [employer]. History and Stress Test performed by RT Jaylyn Bustamante) (N) Pharm. Details Pharmacologic stress testing was performed using 0.4mg per 5ml of regadenoson given intravenously ove r 7-10 seconds. Stress Symptoms chest pressure scale 10/10 at beginning of recovery period- resolved by end of recovery period POST EXERCISE Reason for Termination: Infusion complete Max HR: 92 bpm Max Blood Pressure: 158/66mmHg Blood Pressure response to exercise: Normal blood pressure response during stress. Heart Rate response to exercise: wnl Chest Pain: Yes. see above note Arrhythmia: No. ST Change: No. INTERPRETATION Stress EKG Conclusion: The resting EKG shows a sinus rhythm with mild nonspecific T wave changes. The stress EKG shows no significant changes from baseline. No EKG evidence of stress-induced ischemia. Imaging Protocol IMAGE PROTOCOL: Rest Tc-99m/stress Tc-99m 1 day Rest: Stress: Viability: Radiopharm.Tc99m LaabdpmmsGg99o Sestamibi Dose10.5mCi 31mCi Duration 15min. 10min. Img Date 06/16/2020 06/16/2020 Inj-Img Berp46fbb. 60min. Rest Admin Site:IV - Left AntecubitalAdministrator:RT Harshad (Bulmaro)(N) Stress Admin Site: IV - Left AntecubitalAdministrator: Zaira Gómez, RT (R)(N) STRESS DATA End Diast. Vol.93.0mlAv. Heart Rate63.0bpm End Syst. Vol.24.0mlCO Index BSA0.0L/min Myocardial Budq979.0gEject. Gmtiwhgq26.0% Stress Rates Pk. Fill Rate3.25EDV/secLVtime Pk. Fill 197.77msec Pk. Empty Rate4.36ESV/secLVtime Pk. Azoih751.85msec 05/23 Pk. Fill1.76EDV/sec Stress Scores Regional WT0.00Summed WT2.00 Regional WM0.00Summed WM0.00 LV Perfusion The stress images show slight apical thinning. The rest images show slight apical thinning. Nuclear imaging shows no reversible ischemia. Nuclear imaging shows slight fixed apical thinning most consistent with a technical artifact. Wall Motion Left ventricular systolic function is normal with no regional wall motion abnormalities and an ejecti on fraction of 69%. LV Perf. Quant 17 Seg. SSS10.00 17 Seg. SRS11.00 17 Seg. SDS0.00 Stress Defect Extent (% LAD)24.40Rest Defect Extent (% LAD)30.00Rev. Defect Extent (% LAD)0.00 Stress Defect Extent (% LCX) 35.00Rest Defect Extent (% LCX)43.80Rev. Defect Extent (% LCX)2.50 Stress Defect Extent (% RCA)2.20Rest Defect Extent (% RCA)3.30Rev. Defect Extent (% RCA)0.00 Stress Defect Extent (% DAI)24.60Rest Defect Extent (% DAI)30.00Rev. Defect Extent (% DAI)0.40 Conclusion 1. No EKG evidence of stress-induced ischemia. 2. Nuclear imaging shows no reversible ischemia. 3. Nuclear imaging shows slight fixed apical thinning most consistent with a technical artifact. 4. Normal left ventricular systolic function with no regional wall motion abnormalities and an ejecti on fraction of 69%. 5. Low risk Lexiscan nuclear stress test. Signed by : Amrik Thomas MD Electronically Approved : 06/16/2020 17:14:18
[2020-06-16] MEDS: ASPIRIN CHEWABLE 81 MG TABLET. PO SCH (18:02)
[2020-06-16] MEDS: amLODIPine BESYLATE 10 MG TABLET PO SCH (18:03)
[2020-06-16 19:52] VITALS: BP 121/53
[2020-06-16] MEDS: ENOXAPARIN 40 MG/0.4 ML SYRINGE. SQ SCH (21:06)
[2020-06-16 23:07] VITALS: BP 135/67
[2020-06-17 03:09] VITALS: BP 118/68
[2020-06-17 07:22] VITALS: BP 110/62
[2020-06-17 08:18] LABS: BASO # 0.1 x10^3/uL (0.0-0.2); BASO % 1 % (0-3); EOS # 0.2 x10^3/uL (0.0-0.7); EOS % 2 % (0-3); HEMATOCRIT 38.1 % (36.0-47.0); HEMOGLOBIN 12.3 g/dL (12.0-15.5); LYMPH # 2.1 x10^3/uL (1.0-4.8); LYMPH % 21 % (24-48); MEAN CORPUSCULAR HEMOGLOBIN 28 pg (25-35); MEAN CORPUSCULAR HGB CONC 32 g/dL (31-37); MEAN CORPUSCULAR VOLUME 86 fL (79-100); MONO # 0.7 x10^3/uL (0.0-1.1); MONO % 7 % (0-9); NEUT % 70 % (31-73); PLATELET COUNT 414 x10^3/uL (140-400); RED BLOOD COUNT 4.44 x10^6/uL (3.50-5.40); WHITE BLOOD COUNT 9.9 x10^3/uL (4.0-11.0)
[2020-06-17 08:23] LABS: ALBUMIN 3.2 g/dL (3.4-5.0); ALBUMIN/GLOBULIN RATIO 0.8 (1.0-1.7); CALCIUM 9.3 mg/dL (8.5-10.1); CREATININE 0.8 mg/dL (0.6-1.0); GFR 92.2; POTASSIUM 4.4 mmol/L (3.5-5.1); TOTAL BILIRUBIN 0.2 mg/dL (0.2-1.0); TOTAL PROTEIN 7.2 g/dL (6.4-8.2)
[2020-06-17] MEDS: ASPIRIN CHEWABLE 81 MG TABLET. PO SCH (10:27)
[2020-06-17] MEDS: amLODIPine BESYLATE 10 MG TABLET PO SCH (10:28)
[2020-06-17 10:32] VITALS: BP_SYST 132; BP_SYST 152; BP_SYST 153; BP_DIAS 67; BP_DIAS 75
--- NOTE | 2020-06-17 10:44 | RAD ---
EXAM: BILATERAL DUPLEX CAROTID SONOGRAPHY INDICATION: TIA, aphasia COMPARISON: None TECHNIQUE: Duplex sonography of the cervical portion of both carotid arteries was performed. Real-paul e grayscale, color flow Doppler, and Doppler spectral waveform analysis is performed. NASCET criteria was used. FINDINGS: Right side: Peak systolic flow velocity of the CCA is 160 cm/sec. Peak systolic flow velocity of the ICA is 125 cm/sec. The ICA/CCA ratio is 0.78. Peak end diastolic flow velocity of the ICA is 47 cm/sec. The peak systolic velocity of the ECA is 117 cm/sec. Left side: Peak systolic flow velocity of the CCA is 174 cm/sec. Peak systolic flow velocity of the ICA is 103 cm/sec. The ICA/CCA ratio is 0.59. Peak end diastolic flow velocity of the ICA is 29 cm/sec. Peak systolic flow velocity of the ECA is 80 cm/sec. Vertebral arteries: Bilateral vertebral arteries demonstrate antegrade flow. IMPRESSION: Less than 50 percent stenosis of the internal carotid arteries bilaterally. PQRS Compliance Statement - Stenosis calculations for CT, MR and conventional angiography are based u kyree measurement of the distal ICA diameter in accordance with the NASCET methodology. Stenosis calcu lations for carotid ultrasound studies are derived from validated velocity criteria which are known t o correlate with the NASCET methodology. Electronically signed by: Dotty Goldman MD (06/17/2020 10:41 AM) [id number]
--- NOTE | 2020-06-17 12:21 | PDOC ---
CARDIO Progress Notes Date and Time Date of Service 06/17/2020 Time of Evaluation 1030 Subjective Subjective: No Chest Pain, No shortness of breath, No Palpitations Vitals Vitals Vital Signs Date Time Temp Pulse Resp B/P (MAP) Pulse Ox O2 Delivery O2 Flow Rate FiO2 06/17/20 10:32 77 153/67 (95) 06/17/20 10:32 98.5 18 92 Room Air 98.5 Weight Weight [ ] Input and Output Intake and Output Intake and Output 06/17/20 06:59 Intake Total 620 ml Output Total 1050 ml Balance -430 ml Intake Oral 620 ml Output Urine Total 1050 ml # Voids 1 # Bowel Movements 2 Laboratory Labs Laboratory Tests Test 06/17/20 07:30 White Blood Count 9.9 x10^3/uL (4.0-11.0) Red Blood Count 4.44 x10^6/uL (3.50-5.40) Hemoglobin 12.3 g/dL (12.0-15.5) Hematocrit 38.1 % (36.0-47.0) Mean Corpuscular Volume 86 fL (79-100) Mean Corpuscular Hemoglobin 28 pg (25-35) Mean Corpuscular Hemoglobin Concent 32 g/dL (31-37) Red Cell Distribution Width 17.0 % (11.5-14.5) Platelet Count 414 x10^3/uL (140-400) Neutrophils (%) (Auto) 70 % (31-73) Lymphocytes (%) (Auto) 21 % (24-48) Monocytes (%) (Auto) 7 % (0-9) Eosinophils (%) (Auto) 2 % (0-3) Basophils (%) (Auto) 1 % (0-3) Neutrophils # (Auto) 7.0 x10^3/uL (1.8-7.7) Lymphocytes # (Auto) 2.1 x10^3/uL (1.0-4.8) Monocytes # (Auto) 0.7 x10^3/uL (0.0-1.1) Eosinophils # (Auto) 0.2 x10^3/uL (0.0-0.7) Basophils # (Auto) 0.1 x10^3/uL (0.0-0.2) Sodium Level 141 mmol/L (136-145) Potassium Level 4.4 mmol/L (3.5-5.1) Chloride Level 106 mmol/L (98-107) Carbon Dioxide Level 27 mmol/L (21-32) Anion Gap 8 (6-14) Blood Urea Nitrogen 11 mg/dL (7-20) Creatinine 0.8 mg/dL (0.6-1.0) Estimated GFR (Cockcroft-Gault) 92.2 BUN/Creatinine Ratio 14 (6-20) Glucose Level 101 mg/dL (70-99) Calcium Level 9.3 mg/dL (8.5-10.1) Total Bilirubin 0.2 mg/dL (0.2-1.0) Aspartate Amino Transf (AST/SGOT) 16 U/L (15-37) Alanine Aminotransferase (ALT/SGPT) 25 U/L (14-59) Alkaline Phosphatase 61 U/L (46-116) Total Protein 7.2 g/dL (6.4-8.2) Albumin 3.2 g/dL (3.4-5.0) Albumin/Globulin Ratio 0.8 (1.0-1.7) Microbiology Micro Microbiology 06/15/20 Urine Culture - Final, Complete Physical Exam HEENT: Neck Supple W Full Motion Chest: Symmetric LUNGS: Clear to Auscultation Heart: RRR (SR) Abdomen: Soft N/T Extremities: No Edema, No Calf Tenderness Neurology: alert, oriented, follow commands Assessment Assessment 1. Chest pain: potentially from accelerated HTN 2. Mild troponin elevation: peaked at 0.09 EKG SR without acute changes,demand mediated. MPI unremarkable for ischemia. Normal EF and WM 3. Post covid-19: early April 2020 4. HTN: reported labile at home. Currently controlled 5. TIA symptoms vs Covid-19 brain fog vs HTN encephalopathy 6. Obesity Recommendations 1. No further cardiac workup 2. Continue home BP regimen and HBPM. Follow up in office as scheduled . If she continues to have sudden significnat BP elevation then would consider further workup for secondary HTN. Dietitian consult for DASH diet. 3. Consult Neurology Justicifation of Admission Dx: Justifications for Admission: Justification of Admission Dx: Yes TANNER CAI APRN Jun 17, 2020 12:21
--- NOTE | 2020-06-17 12:21 | NUR ---
SS following up with discharge planning. SS reviewed pt chart and discussed with pt RN. Pt is currently on room air. Pt having stress test. Cardiology following. No PT/OT needs. Discharge plan is to home when medically ready. SS will continue to follow for discharge planning.
--- NOTE | 2020-06-17 13:32 | PDOC2 ---
NEUROLOGY CONSULT Date of Service DOS: DATE: 06/17/20 TIME: 13:23 Reason for Consult Reason for Consult: Altered mental status Referring Physician Referring Physician: Dr. Gonzales Source Source: Chart review, Patient History of Present Illness History of Present Illness The patient is a 49-year-old right-handed female admitted for chest pain. She had been having chest heaviness for 2 or 3 days and left arm flushed feeling and weakness to the left arm and leg. She was in the emergency department on 06/13 with complaints of getting her words out, forgetfulness, depersonalization feeli ngs, all off and on since she had Covid in April. Head CT was negative. Dr. Brown, on-call for neurology, recommended nonemergent MRI. It was decided to send the patient home from the emergency department. The patient denies headache, diplopia, dysphagia, dysarthria, she simply has trouble thinking of words she wants to say and sometimes feels like she is "out of her body." She shows me the Bible she is reading and talks about averse about using figs to heal herself, she wants to try the figs. Past Medical History Cardiovascular: Other (Tachycardia, chest pain) GI: GERD, GI bleed Heme/Onc: Anemia NOS Hepatobiliary: Cholelithiasis Psych: Anxiety, Depression Musculoskeletal: low back pain Infectious disease: Other (Covid, 05/09) Renal/: UTI Dermatology: Other (Seborrheic dermatitis) Past Surgical History Past Surgical History: Hernia Repair ([facility]), Other ([place] teeth) Family History Family History: No pertinent hx Social History Social History , no alcohol or tobacco Current Medications Current Medications Current Medications Sodium Chloride (Normal Saline Flush) 3 ml QSHIFT PRN IV AFTER MEDS AND BLOOD DRAWS; Start 06/15/20 at 17:15 Ondansetron HCl (Zofran) 4 mg PRN Q4HRS PRN IV NAUSEA/VOMITING; Start 06/15/20 at 17:15 Zolpidem Tartrate (Ambien) 5 mg PRN QHS PRN PO INSOMNIA; Start 06/15/20 at 17:15 Acetaminophen (Tylenol) 650 mg PRN Q4HRS PRN PO TEMP OVER 100.4F OR MILD PAIN; Start 06/15/20 at 17:15 Al Hydroxide/Mg Hydroxide (Mylanta Plus Xs) 30 ml PRN DAILY PRN PO HEARTBURN / GAS; Start 06/15/20 at 17:15 Clonidine HCl (Catapres) 0.1 mg PRN Q6HRS PRN PO SBP>160 OR DBP>90; Start 06/15/20 at 17:15 Sodium Monofluorophosphate (Fleet Adult) 133 ml PRN DAILY PRN [place] CONSTIPATION; Start 06/15/20 at 17:15 Diphenhydramine HCl (Benadryl) 25 mg PRN Q4HRS PRN IVP ITCHING; Start 06/15/20 at 17:15 Docusate Sodium (Colace) 100 mg PRN BID PRN PO HARD STOOLS; Start 06/15/20 at 17:15 Albuterol Sulfate (Ventolin Neb Soln) 2.5 mg PRN Q4HRS PRN NEB SHORTNESS OF BREATH; Start 06/15/20 at 17:15 Guaifenesin (Robitussin) 200 mg PRN Q4HRS PRN PO COUGH; Start 06/15/20 at 17:15 Lorazepam (Ativan) 0.5 mg PRN Q4HRS PRN PO ANXIETY / AGITATION; Start 06/15/20 at 17:15 Enoxaparin Sodium (Lovenox 40mg Syringe) 40 mg Q24H SQ Last administered on 06/16/20at 21:06; Start 06/15/20 at 21:00 Nitroglycerin (Nitrostat) 0.4 mg PRN Q5MIN PRN SL CHEST PAIN; Start 06/15/20 at 18:45 Aspirin (Quita Aspirin) 325 mg 1X ONCE PO ; Start 06/15/20 at 19:00; Stop 06/15/20 at 19:01; Status DC Perflutren Protein Type A Microsphe (Optison) 0.66 mg STK-MED ONCE IV ; Start 06/16/20 at 10:05; Stop 06/16/20 at 10:06; Status DC Perflutren Protein Type A Microsphe (Optison) 0.66 mg 1X ONCE IV Last administered on 06/16/20at 10:42; Start 06/16/20 at 10:45; Stop 06/16/20 at 10:46; Status DC Regadenoson (Lexiscan) 0.4 mg 1X ONCE IV Last administered on 06/16/20at 14:16; Start 06/16/20 at 13:00; Stop 06/16/20 at 13:01; Status DC Amlodipine Besylate (Norvasc) 10 mg DAILY PO Last administered on 06/17/20at 10:28; Start 06/16/20 at 15:00 Aspirin (Aspirin Chewable) 81 mg DAILY PO Last administered on 06/17/20at 10:27; Start 06/16/20 at 15:00 Lisinopril (Prinivil) 20 mg DAILY PO Last administered on 06/16/20at 18:03; Start 06/16/20 at 15:00; Stop 06/17/20 at 09:07; Status DC Lisinopril (Prinivil) 20 mg QHS PO ; Start 06/17/20 at 21:00 Active Scripts Active Reported Norvasc (Amlodipine Besylate) 10 Mg Tablet 10 Mg PO DAILY Lisinopril 20 Mg Tablet 1 Tab PO DAILY Aspirin 81 Mg Tab.chew 1 Tab PO DAILY Vitamin B-12 (Cyanocobalamin (Vitamin B-12)) 500 Mcg Tablet 1 Tab PO DAILY 30 Days Epipen 2-Dario (Epinephrine) 0.3 Mg/0.3 Ml Auto.injct 0.3 Mg IJ Allergies Allergies: Coded Allergies: Penicillins (Verified Allergy, Severe, Anaphylaxis, 02/25/14) shellfish derived (Verified Allergy, Severe, Anaphylaxis, 02/25/14) iodine (Verified Adverse Reaction, Intermediate, NAUSEA, DIARRHEA, 02/26/14) ROS Review of System Negative for fever, chills, weight loss, hematochezia, melena, and dysuria. Positive for dyspnea, chest pain, dyspepsia. Full 14-point review of systems is otherwise negative. Physical Exam Physical Examination General: Well-developed, well-nourished black female in no acute distress HEENT: Normocephalic andatraumatic. Temporal arteriespulsatile and nontender. Neck: Supple without bruit, no meningismus Musculoskeletal: Stability:see neurologic. Gait exam:see neurologic. Tone:see neurologic.Strength:see neurologic. Neurological: Mental Status:intact, orientation, memory, attention span/concentration, language, fund of knowledge normal. Cranial Nerves:Pupils equal and reactive to light, extraocular movements areintact, visual noble are full to confrontation. Facial sensation is normal. There is no facial asymmetry. Vestibulo-ocular reflex is intact. Palate elevates and tongue protrudes in m idline. All other cranial related problems are negative except as mentioned before.Reflexes:2+ and symmetric with flexor plantar responses. Motor:5/5 strength with normal tone and bulk. Coordination:Finger-nose finger and [id number] testing are normal. Rapid alternating movements and fine finger movements are intact. Gait:Normal, including tandem. Sensory:Normal pinprick, vibration, light touch, proprioception. Vitals VITALS Vital Signs Date Time Temp Pulse Resp B/P (MAP) Pulse Ox O2 Delivery O2 Flow Rate FiO2 06/17/20 10:32 77 153/67 (95) 06/17/20 10:32 98.5 18 92 Room Air 98.5 Labs Labs Laboratory Tests Test 06/15/20 16:00 06/15/20 16:10 06/15/20 19:48 06/16/20 00:55 White Blood Count 10.4 x10^3/uL (4.0-11.0) Red Blood Count 4.39 x10^6/uL (3.50-5.40) Hemoglobin 12.3 g/dL (12.0-15.5) Hematocrit 37.3 % (36.0-47.0) Mean Corpuscular Volume 85 fL (79-100) Mean Corpuscular Hemoglobin 28 pg (25-35) Mean Corpuscular Hemoglobin Concent 33 g/dL (31-37) Red Cell Distribution Width 16.7 % (11.5-14.5) Platelet Count 364 x10^3/uL (140-400) Neutrophils (%) (Auto) 74 % (31-73) Lymphocytes (%) (Auto) 18 % (24-48) Monocytes (%) (Auto) 6 % (0-9) Eosinophils (%) (Auto) 1 % (0-3) Basophils (%) (Auto) 1 % (0-3) Neutrophils # (Auto) 7.6 x10^3/uL (1.8-7.7) Lymphocytes # (Auto) 1.9 x10^3/uL (1.0-4.8) Monocytes # (Auto) 0.6 x10^3/uL (0.0-1.1) Eosinophils # (Auto) 0.1 x10^3/uL (0.0-0.7) Basophils # (Auto) 0.1 x10^3/uL (0.0-0.2) D-Dimer (Rhonda) < 0.27 ug/mlFEU Sodium Level 141 mmol/L (136-145) Potassium Level 3.5 mmol/L (3.5-5.1) Chloride Level 103 mmol/L (98-107) Carbon Dioxide Level 25 mmol/L (21-32) Anion Gap 13 (6-14) Blood Urea Nitrogen 7 mg/dL (7-20) Creatinine 0.8 mg/dL (0.6-1.0) Estimated GFR (Cockcroft-Gault) 92.2 BUN/Creatinine Ratio 9 (6-20) Glucose Level 92 mg/dL (70-99) Calcium Level 8.8 mg/dL (8.5-10.1) Magnesium Level 2.0 mg/dL (1.8-2.4) Total Bilirubin 0.2 mg/dL (0.2-1.0) Aspartate Amino Transf (AST/SGOT) 17 U/L (15-37) Alanine Aminotransferase (ALT/SGPT) 22 U/L (14-59) Alkaline Phosphatase 62 U/L (46-116) Creatine Kinase 122 U/L (26-192) Creatine Kinase MB (Mass) 0.7 ng/mL (0.0-3.6) Creatine Kinase MB Relative Index 0.6 % (0-4) Troponin I Quantitative 0.052 ng/mL (0.000-0.055) 0.083 ng/mL (0.000-0.055) 0.095 ng/mL (0.000-0.055) GX-Lrh-V-Type Natriuretic Peptide 43 pg/mL (0-124) Total Protein 7.1 g/dL (6.4-8.2) Albumin 3.5 g/dL (3.4-5.0) Albumin/Globulin Ratio 1.0 (1.0-1.7) Lipase 123 U/L (73-393) Urine Collection Type Unknown Urine Color Yellow Urine Clarity Clear Urine pH 6.5 (<5.0-8.0) Urine Specific Jackson 1.015 (1.000-1.030) Urine Protein Negative mg/dL (NEG-TRACE) Urine Glucose (UA) Negative mg/dL (NEG) Urine Ketones (Stick) Negative mg/dL (NEG) Urine Blood Negative (NEG) Urine Nitrite Negative (NEG) Urine Bilirubin Negative (NEG) Urine Urobilinogen Dipstick 0.2 mg/dL (0.2 mg/dL) Urine Leukocyte Esterase Trace (NEG) Urine RBC Occ /HPF (0-2) Urine WBC 1-4 /HPF (0-4) Urine Squamous Epithelial Cells Mod /LPF Urine Bacteria Few /HPF (0-FEW) Urine Mucus Slight /LPF Test 06/16/20 06:00 06/17/20 07:30 Sodium Level 141 mmol/L (136-145) 141 mmol/L (136-145) Potassium Level 3.9 mmol/L (3.5-5.1) 4.4 mmol/L (3.5-5.1) Chloride Level 106 mmol/L (98-107) 106 mmol/L (98-107) Carbon Dioxide Level 27 mmol/L (21-32) 27 mmol/L (21-32) Anion Gap 8 (6-14) 8 (6-14) Blood Urea Nitrogen 6 mg/dL (7-20) 11 mg/dL (7-20) Creatinine 0.8 mg/dL (0.6-1.0) 0.8 mg/dL (0.6-1.0) Estimated GFR (Cockcroft-Gault) 92.2 92.2 Glucose Level 93 mg/dL (70-99) 101 mg/dL (70-99) Calcium Level 9.2 mg/dL (8.5-10.1) 9.3 mg/dL (8.5-10.1) Troponin I Quantitative 0.087 ng/mL (0.000-0.055) Triglycerides Level 63 mg/dL (0-150) Cholesterol Level 143 mg/dL (0-200) LDL Cholesterol, Calculated 71 mg/dL (0-100) VLDL Cholesterol, Calculated 13 mg/dL (0-40) Non-HDL Cholesterol Calculated 84 mg/dL (0-129) HDL Cholesterol 59 mg/dL (40-60) Cholesterol/HDL Ratio 2.4 Thyroid Stimulating Hormone (TSH) 0.558 uIU/mL (0.358-3.74) White Blood Count 9.9 x10^3/uL (4.0-11.0) Red Blood Count 4.44 x10^6/uL (3.50-5.40) Hemoglobin 12.3 g/dL (12.0-15.5) Hematocrit 38.1 % (36.0-47.0) Mean Corpuscular Volume 86 fL (79-100) Mean Corpuscular Hemoglobin 28 pg (25-35) Mean Corpuscular Hemoglobin Concent 32 g/dL (31-37) Red Cell Distribution Width 17.0 % (11.5-14.5) Platelet Count 414 x10^3/uL (140-400) Neutrophils (%) (Auto) 70 % (31-73) Lymphocytes (%) (Auto) 21 % (24-48) Monocytes (%) (Auto) 7 % (0-9) Eosinophils (%) (Auto) 2 % (0-3) Basophils (%) (Auto) 1 % (0-3) Neutrophils # (Auto) 7.0 x10^3/uL (1.8-7.7) Lymphocytes # (Auto) 2.1 x10^3/uL (1.0-4.8) Monocytes # (Auto) 0.7 x10^3/uL (0.0-1.1) Eosinophils # (Auto) 0.2 x10^3/uL (0.0-0.7) Basophils # (Auto) 0.1 x10^3/uL (0.0-0.2) BUN/Creatinine Ratio 14 (6-20) Total Bilirubin 0.2 mg/dL (0.2-1.0) Aspartate Amino Transf (AST/SGOT) 16 U/L (15-37) Alanine Aminotransferase (ALT/SGPT) 25 U/L (14-59) Alkaline Phosphatase 61 U/L (46-116) Total Protein 7.2 g/dL (6.4-8.2) Albumin 3.2 g/dL (3.4-5.0) Albumin/Globulin Ratio 0.8 (1.0-1.7) Laboratory Tests Test 06/17/20 07:30 White Blood Count 9.9 x10^3/uL (4.0-11.0) Red Blood Count 4.44 x10^6/uL (3.50-5.40) Hemoglobin 12.3 g/dL (12.0-15.5) Hematocrit 38.1 % (36.0-47.0) Mean Corpuscular Volume 86 fL (79-100) Mean Corpuscular Hemoglobin 28 pg (25-35) Mean Corpuscular Hemoglobin Concent 32 g/dL (31-37) Red Cell Distribution Width 17.0 % (11.5-14.5) Platelet Count 414 x10^3/uL (140-400) Neutrophils (%) (Auto) 70 % (31-73) Lymphocytes (%) (Auto) 21 % (24-48) Monocytes (%) (Auto) 7 % (0-9) Eosinophils (%) (Auto) 2 % (0-3) Basophils (%) (Auto) 1 % (0-3) Neutrophils # (Auto) 7.0 x10^3/uL (1.8-7.7) Lymphocytes # (Auto) 2.1 x10^3/uL (1.0-4.8) Monocytes # (Auto) 0.7 x10^3/uL (0.0-1.1) Eosinophils # (Auto) 0.2 x10^3/uL (0.0-0.7) Basophils # (Auto) 0.1 x10^3/uL (0.0-0.2) Sodium Level 141 mmol/L (136-145) Potassium Level 4.4 mmol/L (3.5-5.1) Chloride Level 106 mmol/L (98-107) Carbon Dioxide Level 27 mmol/L (21-32) Anion Gap 8 (6-14) Blood Urea Nitrogen 11 mg/dL (7-20) Creatinine 0.8 mg/dL (0.6-1.0) Estimated GFR (Cockcroft-Gault) 92.2 BUN/Creatinine Ratio 14 (6-20) Glucose Level 101 mg/dL (70-99) Calcium Level 9.3 mg/dL (8.5-10.1) Total Bilirubin 0.2 mg/dL (0.2-1.0) Aspartate Amino Transf (AST/SGOT) 16 U/L (15-37) Alanine Aminotransferase (ALT/SGPT) 25 U/L (14-59) Alkaline Phosphatase 61 U/L (46-116) Total Protein 7.2 g/dL (6.4-8.2) Albumin 3.2 g/dL (3.4-5.0) Albumin/Globulin Ratio 0.8 (1.0-1.7) Images Images Carotid Doppler studies: FINDINGS: Right side: Peak systolic flow velocity of the CCA is 160 cm/sec. Peak systolic flow velocity of the ICA is 125 cm/sec. The ICA/CCA ratio is 0.78. Peak end diastolic flow velocity of the ICA is 47 cm/sec. The peak systolic velocity of the ECA is 117 cm/sec. Left side: Peak systolic flow velocity of the CCA is 174 cm/sec. Peak systolic flow velocity of the ICA is 103 cm/sec. The ICA/CCA ratio is 0.59. Peak end diastolic flow velocity of the ICA is 29 cm/sec. Peak systolic flow velocity of the ECA is 80 cm/sec. Vertebral arteries: Bilateral vertebral arteries demonstrate antegrade flow. IMPRESSION: Less than 50 percent stenosis of the internal carotid arteries bilaterally. Assessment/Plan Assessment/Plan Impression: This type of encephalopathy can occur after Covid, consider cerebrovascular disease, seizure disorder, central nervous system infection, nonorganic cause such as psychiatric disease. Recommendations: MRI of the brain Carotid Doppler studies, already done Hold on electroencephalogram and lumbar puncture Offered reassurance Cardiac work-up is also in progress. Thank you for letting me help with the patient's care. KRISTINA ARIAS MD Jun 17, 2020 13:32
--- NOTE | 2020-06-17 13:59 | DS ---
DATE OF DISCHARGE: 06/16/2020 ADMISSION DIAGNOSIS: Chest pain. DISCHARGE DIAGNOSES: Atypical chest pain with demand ischemia, history of recent COVID-19, hypertension, obesity. CONSULTS: Cardiology. PROCEDURES: None. HOSPITAL COURSE: The patient is a pleasant middle-aged female who presented with chest pain. She was admitted. We consulted Cardiology. The pain seemed to be probably atypical and perhaps from accelerated hypertension. Her troponin was slightly high at 0.09. Basically over the next 48 hours, she did well. We will discharge to home with close outpatient followup. DISPOSITION: Home. ACTIVITY: As tolerated. DIET: Low sodium. MEDICATIONS: Please see the MRAD. TOTAL TIME: 31 minutes. JOSEPHINE JACKSON DO DR: MISA/bjorn JOB#: [id number] / [id number]
[2020-06-17 14:39] VITALS: BP 119/54
--- NOTE | 2020-06-17 16:31 | NUR ---
Brain MRI cancelled and to be done tomorrow per Eric in MRI, he stated that he spoke with Dr. Beard and Dr. Beard advised him this was ok. Advised pt, Will continue to monitor.
[2020-06-17 19:50] VITALS: BP 127/63
[2020-06-17] MEDS: ENOXAPARIN 40 MG/0.4 ML SYRINGE. SQ SCH (20:01)
[2020-06-17] MEDS ORDERED: LISINOPRIL 20 MG TABLET PO SCH (21:00)
[2020-06-17 22:50] VITALS: BP 112/55
[2020-06-18 02:50] VITALS: BP 115/57
[2020-06-18 07:00] VITALS: BP 125/70
[2020-06-18 07:41] LABS: BASO # 0.1 x10^3/uL (0.0-0.2); BASO % 1 % (0-3); EOS # 0.2 x10^3/uL (0.0-0.7); EOS % 3 % (0-3); HEMATOCRIT 39.9 % (36.0-47.0); HEMOGLOBIN 13.2 g/dL (12.0-15.5); LYMPH # 1.7 x10^3/uL (1.0-4.8); LYMPH % 21 % (24-48); MEAN CORPUSCULAR HEMOGLOBIN 28 pg (25-35); MEAN CORPUSCULAR HGB CONC 33 g/dL (31-37); MEAN CORPUSCULAR VOLUME 85 fL (79-100); MONO # 0.5 x10^3/uL (0.0-1.1); MONO % 6 % (0-9); NEUT # 5.8 x10^3/uL (1.8-7.7); NEUT % 70 % (31-73); PLATELET COUNT 391 x10^3/uL (140-400); RED BLOOD COUNT 4.69 x10^6/uL (3.50-5.40); WHITE BLOOD COUNT 8.2 x10^3/uL (4.0-11.0)
[2020-06-18 08:04] LABS: ALBUMIN 3.4 g/dL (3.4-5.0); ALBUMIN/GLOBULIN RATIO 0.8 (1.0-1.7); CALCIUM 9.3 mg/dL (8.5-10.1); CREATININE 0.8 mg/dL (0.6-1.0); GFR 92.2; POTASSIUM 4.1 mmol/L (3.5-5.1); TOTAL BILIRUBIN 0.2 mg/dL (0.2-1.0); TOTAL PROTEIN 7.7 g/dL (6.4-8.2)
[2020-06-18] MEDS ORDERED: GADOTERATE 5 MMOL/10ML VIAL. IVP ONE ×2 (08:30)
--- NOTE | 2020-06-18 09:17 | PDOC ---
PROGRESS NOTES Date of Service DATE: 06/18/20 TIME: 09:15 Assessment Encephalopathy after Covid; consider cerebrovascular disease, seizure disorder, central nervous system infection, nonorganic cause such as psychiatric disease. Recommendations: Plan Await MRI of the brain Hold on electroencephalogram and lumbar puncture Offered reassurance Cardiac work-up is also in progress. Okay for discharge after cardiac work-up done Follow-up with me as needed Subjective No complaints, feels better today Objective Vital Signs Date Time Temp Pulse Resp B/P (MAP) Pulse Ox O2 Delivery O2 Flow Rate FiO2 06/18/20 08:00 Room Air 06/18/20 07:00 98.6 62 18 125/70 (88) 97 98.6 Intake and Output 06/18/20 07:00 Intake Total 2200 ml Balance 2200 ml Intake Oral 2200 ml # Voids 3 PHYSICAL EXAM Physical Exam: Alert. Oriented to time, place and person. PERRL. EOMI. CN: no focal findings. Muscle tone: normal. Muscle strength: 5/5 DTR: 2+ Plantar reflex: Flexor Gait: not examined in bed. Sensory exam: no abnormal findings. No cerebellar signs elicited. Review of Relevant I have reviewed the following items srinath (where applicable) has been applied. Labs Laboratory Tests Test 06/17/20 07:30 06/18/20 07:25 White Blood Count 9.9 x10^3/uL (4.0-11.0) 8.2 x10^3/uL (4.0-11.0) Red Blood Count 4.44 x10^6/uL (3.50-5.40) 4.69 x10^6/uL (3.50-5.40) Hemoglobin 12.3 g/dL (12.0-15.5) 13.2 g/dL (12.0-15.5) Hematocrit 38.1 % (36.0-47.0) 39.9 % (36.0-47.0) Mean Corpuscular Volume 86 fL (79-100) 85 fL (79-100) Mean Corpuscular Hemoglobin 28 pg (25-35) 28 pg (25-35) Mean Corpuscular Hemoglobin Concent 32 g/dL (31-37) 33 g/dL (31-37) Red Cell Distribution Width 17.0 % (11.5-14.5) 17.0 % (11.5-14.5) Platelet Count 414 x10^3/uL (140-400) 391 x10^3/uL (140-400) Neutrophils (%) (Auto) 70 % (31-73) 70 % (31-73) Lymphocytes (%) (Auto) 21 % (24-48) 21 % (24-48) Monocytes (%) (Auto) 7 % (0-9) 6 % (0-9) Eosinophils (%) (Auto) 2 % (0-3) 3 % (0-3) Basophils (%) (Auto) 1 % (0-3) 1 % (0-3) Neutrophils # (Auto) 7.0 x10^3/uL (1.8-7.7) 5.8 x10^3/uL (1.8-7.7) Lymphocytes # (Auto) 2.1 x10^3/uL (1.0-4.8) 1.7 x10^3/uL (1.0-4.8) Monocytes # (Auto) 0.7 x10^3/uL (0.0-1.1) 0.5 x10^3/uL (0.0-1.1) Eosinophils # (Auto) 0.2 x10^3/uL (0.0-0.7) 0.2 x10^3/uL (0.0-0.7) Basophils # (Auto) 0.1 x10^3/uL (0.0-0.2) 0.1 x10^3/uL (0.0-0.2) Sodium Level 141 mmol/L (136-145) 139 mmol/L (136-145) Potassium Level 4.4 mmol/L (3.5-5.1) 4.1 mmol/L (3.5-5.1) Chloride Level 106 mmol/L (98-107) 103 mmol/L (98-107) Carbon Dioxide Level 27 mmol/L (21-32) 27 mmol/L (21-32) Anion Gap 8 (6-14) 9 (6-14) Blood Urea Nitrogen 11 mg/dL (7-20) 10 mg/dL (7-20) Creatinine 0.8 mg/dL (0.6-1.0) 0.8 mg/dL (0.6-1.0) Estimated GFR (Cockcroft-Gault) 92.2 92.2 BUN/Creatinine Ratio 14 (6-20) 13 (6-20) Glucose Level 101 mg/dL (70-99) 94 mg/dL (70-99) Calcium Level 9.3 mg/dL (8.5-10.1) 9.3 mg/dL (8.5-10.1) Total Bilirubin 0.2 mg/dL (0.2-1.0) 0.2 mg/dL (0.2-1.0) Aspartate Amino Transf (AST/SGOT) 16 U/L (15-37) 16 U/L (15-37) Alanine Aminotransferase (ALT/SGPT) 25 U/L (14-59) 22 U/L (14-59) Alkaline Phosphatase 61 U/L (46-116) 64 U/L (46-116) Total Protein 7.2 g/dL (6.4-8.2) 7.7 g/dL (6.4-8.2) Albumin 3.2 g/dL (3.4-5.0) 3.4 g/dL (3.4-5.0) Albumin/Globulin Ratio 0.8 (1.0-1.7) 0.8 (1.0-1.7) Laboratory Tests Test 06/18/20 07:25 White Blood Count 8.2 x10^3/uL (4.0-11.0) Red Blood Count 4.69 x10^6/uL (3.50-5.40) Hemoglobin 13.2 g/dL (12.0-15.5) Hematocrit 39.9 % (36.0-47.0) Mean Corpuscular Volume 85 fL (79-100) Mean Corpuscular Hemoglobin 28 pg (25-35) Mean Corpuscular Hemoglobin Concent 33 g/dL (31-37) Red Cell Distribution Width 17.0 % (11.5-14.5) Platelet Count 391 x10^3/uL (140-400) Neutrophils (%) (Auto) 70 % (31-73) Lymphocytes (%) (Auto) 21 % (24-48) Monocytes (%) (Auto) 6 % (0-9) Eosinophils (%) (Auto) 3 % (0-3) Basophils (%) (Auto) 1 % (0-3) Neutrophils # (Auto) 5.8 x10^3/uL (1.8-7.7) Lymphocytes # (Auto) 1.7 x10^3/uL (1.0-4.8) Monocytes # (Auto) 0.5 x10^3/uL (0.0-1.1) Eosinophils # (Auto) 0.2 x10^3/uL (0.0-0.7) Basophils # (Auto) 0.1 x10^3/uL (0.0-0.2) Sodium Level 139 mmol/L (136-145) Potassium Level 4.1 mmol/L (3.5-5.1) Chloride Level 103 mmol/L (98-107) Carbon Dioxide Level 27 mmol/L (21-32) Anion Gap 9 (6-14) Blood Urea Nitrogen 10 mg/dL (7-20) Creatinine 0.8 mg/dL (0.6-1.0) Estimated GFR (Cockcroft-Gault) 92.2 BUN/Creatinine Ratio 13 (6-20) Glucose Level 94 mg/dL (70-99) Calcium Level 9.3 mg/dL (8.5-10.1) Total Bilirubin 0.2 mg/dL (0.2-1.0) Aspartate Amino Transf (AST/SGOT) 16 U/L (15-37) Alanine Aminotransferase (ALT/SGPT) 22 U/L (14-59) Alkaline Phosphatase 64 U/L (46-116) Total Protein 7.7 g/dL (6.4-8.2) Albumin 3.4 g/dL (3.4-5.0) Albumin/Globulin Ratio 0.8 (1.0-1.7) Microbiology 06/15/20 Urine Culture - Final, Complete Medications Current Medications Sodium Chloride (Normal Saline Flush) 3 ml QSHIFT PRN IV AFTER MEDS AND BLOOD DRAWS; Start 06/15/20 at 17:15 Ondansetron HCl (Zofran) 4 mg PRN Q4HRS PRN IV NAUSEA/VOMITING; Start 06/15/20 at 17:15 Zolpidem Tartrate (Ambien) 5 mg PRN QHS PRN PO INSOMNIA; Start 06/15/20 at 17:15 Acetaminophen (Tylenol) 650 mg PRN Q4HRS PRN PO TEMP OVER 100.4F OR MILD PAIN; Start 06/15/20 at 17:15 Al Hydroxide/Mg Hydroxide (Mylanta Plus Xs) 30 ml PRN DAILY PRN PO HEARTBURN / GAS; Start 06/15/20 at 17:15 Clonidine HCl (Catapres) 0.1 mg PRN Q6HRS PRN PO SBP>160 OR DBP>90; Start 06/15/20 at 17:15 Sodium Monofluorophosphate (Fleet Adult) 133 ml PRN DAILY PRN [place] CONSTIPATION; Start 06/15/20 at 17:15 Diphenhydramine HCl (Benadryl) 25 mg PRN Q4HRS PRN IVP ITCHING; Start 06/15/20 at 17:15 Docusate Sodium (Colace) 100 mg PRN BID PRN PO HARD STOOLS; Start 06/15/20 at 17:15 Albuterol Sulfate (Ventolin Neb Soln) 2.5 mg PRN Q4HRS PRN NEB SHORTNESS OF BREATH; Start 06/15/20 at 17:15 Guaifenesin (Robitussin) 200 mg PRN Q4HRS PRN PO COUGH; Start 06/15/20 at 17:15 Lorazepam (Ativan) 0.5 mg PRN Q4HRS PRN PO ANXIETY / AGITATION; Start 06/15/20 at 17:15 Enoxaparin Sodium (Lovenox 40mg Syringe) 40 mg Q24H SQ Last administered on 06/17/20at 20:01; Start 06/15/20 at 21:00 Nitroglycerin (Nitrostat) 0.4 mg PRN Q5MIN PRN SL CHEST PAIN; Start 06/15/20 at 18:45 Aspirin ([place]uit[place] Aspirin) 325 mg 1X ONCE PO ; Start 06/15/20 at 19:00; Stop 06/15/20 at 19:01; Status DC Perflutren Protein Type A Microsphe (Optison) 0.66 mg STK-MED ONCE IV ; Start 06/16/20 at 10:05; Stop 06/16/20 at 10:06; Status DC Perflutren Protein Type A Microsphe (Optison) 0.66 mg 1X ONCE IV Last administered on 06/16/20at 10:42; Start 06/16/20 at 10:45; Stop 06/16/20 at 10:46; Status DC Regadenoson (Lexiscan) 0.4 mg 1X ONCE IV Last administered on 06/16/20at 14:16; Start 06/16/20 at 13:00; Stop 06/16/20 at 13:01; Status DC Amlodipine Besylate (Norvasc) 10 mg DAILY PO Last administered on 06/17/20at 10:28; Start 06/16/20 at 15:00 Aspirin (Aspirin Chewable) 81 mg DAILY PO Last administered on 06/17/20at 10:27; Start 06/16/20 at 15:00 Lisinopril (Prinivil) 20 mg DAILY PO Last administered on 06/16/20at 18:03; Start 06/16/20 at 15:00; Stop 06/17/20 at 09:07; Status DC Lisinopril (Prinivil) 20 mg QHS PO Last administered on 06/17/20at 20:02; Start 06/17/20 at 21:00 Gadoterate Meglumine (Clariscan) 10 ml 1X ONCE IVP ; Start 06/18/20 at 08:30; Stop 06/18/20 at 08:31; Status DC Gadoterate Meglumine (Clariscan) 10 ml 1X ONCE IVP ; Start 06/18/20 at 08:30; Stop 06/18/20 at 08:31; Status DC Active Scripts Active Reported Norvasc (Amlodipine Besylate) 10 Mg Tablet 10 Mg PO DAILY Lisinopril 20 Mg Tablet 1 Tab PO DAILY Aspirin 81 Mg Tab.chew 1 Tab PO DAILY Vitamin B-12 (Cyanocobalamin (Vitamin B-12)) 500 Mcg Tablet 1 Tab PO DAILY 30 Days Epipen 2-Dario (Epinephrine) 0.3 Mg/0.3 Ml Auto.injct 0.3 Mg IJ Vitals/I & O Vital Sign - Last 24 Hours 06/17/20 06/17/20 06/17/20 06/17/20 10:28 10:32 10:32 10:32 Temp 98.5 98.5 Pulse 75 66 79 77 Resp 18 B/P (MAP) 153/67 132/75 (94) 152/67 (95) 153/67 (95) Pulse Ox 92 O2 Delivery Room Air 06/17/20 06/17/20 06/17/20 06/17/20 14:39 19:50 20:00 20:02 Temp 98.6 97.9 98.6 97.9 Pulse 79 55 58 Resp 18 20 B/P (MAP) 119/54 (75) 127/63 (84) 127/63 Pulse Ox 98 95 O2 Delivery Room Air Room Air Room Air 06/17/20 06/18/20 06/18/20 06/18/20 22:50 02:50 07:00 08:00 Temp 97.8 97.9 98.6 97.8 97.9 98.6 Pulse 55 61 62 Resp 18 18 18 B/P (MAP) 112/55 (74) 115/57 (76) 125/70 (88) Pulse Ox 98 97 97 O2 Delivery Room Air Room Air Room Air Room Air Intake and Output 06/17/20 06/17/20 06/18/20 15:00 23:00 07:00 Intake Total 240 ml 800 ml 1160 ml Balance 240 ml 800 ml 1160 ml Justicifation of Admission Dx: Justifications for Admission: Justification of Admission Dx: Yes KRISTINA ARIAS MD Jun 18, 2020 09:17
--- NOTE | 2020-06-18 10:01 | RAD ---
MRI BRAIN WO+W History:Reason: TIA, aphasia, history of COVID Technique: Multiplanar, multi sequential without and with intravenous contrast MR imaging was perform ed of the brain. Comparison: CT June 13, 2020 Findings: No acute infarct. No intracranial hemorrhage. No mass effect. No hydrocephalus. Extra-axial spaces a re unremarkable. No pathologic enhancement. Imaged orbits are unremarkable. Imaged paranasal sinuses and mastoid air cells are clear. Impression: 1. No acute intracranial abnormality. Electronically signed by: Jaime Gutierrez DO (06/18/2020 9:58 AM) [id number]
[2020-06-18] MEDS: ASPIRIN CHEWABLE 81 MG TABLET. PO SCH (10:14)
[2020-06-18] MEDS: amLODIPine BESYLATE 10 MG TABLET PO SCH (10:14)
[2020-06-18 10:43] VITALS: BP 141/78
--- NOTE | 2020-06-18 11:32 | PDOC ---
[employer] PROGRESS NOTE Date of Service DOS: DATE: 06/18/20 TIME: 11:29 Chief Complaint Chief Complaint Chest pain History of Present Illness History of Present Illness 06/16/2020 -Patient seen and examined -PRAVIN RN -Chart reviewed 06/18/2020 -Patient seen and examined -PRAVIN RN, PRAVIN case fitter -Chart reviewed Vitals/I&O Vitals/I&O: Vital Signs Date Time Temp Pulse Resp B/P (MAP) Pulse Ox O2 Delivery O2 Flow Rate FiO2 06/18/20 10:43 98.7 75 18 141/78 (99) 98 Room Air 98.7 I & O 06/17/20 06/17/20 06/18/20 15:00 23:00 07:00 Intake Total 240 ml 800 ml 1160 ml Balance 240 ml 800 ml 1160 ml Physical Exam General: Alert, Oriented X3, Cooperative, No acute distress Heart: Regular rate (SR), Normal S1, Normal S2, No murmurs Lungs: Wheezing, Crackles Abdomen: Normal bowel sounds, Soft, No tenderness Extremities: No cyanosis, No edema Skin: No rashes, No breakdown, No significant lesion Labs Labs: Laboratory Tests Test 06/18/20 07:25 White Blood Count 8.2 x10^3/uL (4.0-11.0) Red Blood Count 4.69 x10^6/uL (3.50-5.40) Hemoglobin 13.2 g/dL (12.0-15.5) Hematocrit 39.9 % (36.0-47.0) Mean Corpuscular Volume 85 fL (79-100) Mean Corpuscular Hemoglobin 28 pg (25-35) Mean Corpuscular Hemoglobin Concent 33 g/dL (31-37) Red Cell Distribution Width 17.0 % (11.5-14.5) Platelet Count 391 x10^3/uL (140-400) Neutrophils (%) (Auto) 70 % (31-73) Lymphocytes (%) (Auto) 21 % (24-48) Monocytes (%) (Auto) 6 % (0-9) Eosinophils (%) (Auto) 3 % (0-3) Basophils (%) (Auto) 1 % (0-3) Neutrophils # (Auto) 5.8 x10^3/uL (1.8-7.7) Lymphocytes # (Auto) 1.7 x10^3/uL (1.0-4.8) Monocytes # (Auto) 0.5 x10^3/uL (0.0-1.1) Eosinophils # (Auto) 0.2 x10^3/uL (0.0-0.7) Basophils # (Auto) 0.1 x10^3/uL (0.0-0.2) Sodium Level 139 mmol/L (136-145) Potassium Level 4.1 mmol/L (3.5-5.1) Chloride Level 103 mmol/L (98-107) Carbon Dioxide Level 27 mmol/L (21-32) Anion Gap 9 (6-14) Blood Urea Nitrogen 10 mg/dL (7-20) Creatinine 0.8 mg/dL (0.6-1.0) Estimated GFR (Cockcroft-Gault) 92.2 BUN/Creatinine Ratio 13 (6-20) Glucose Level 94 mg/dL (70-99) Calcium Level 9.3 mg/dL (8.5-10.1) Total Bilirubin 0.2 mg/dL (0.2-1.0) Aspartate Amino Transf (AST/SGOT) 16 U/L (15-37) Alanine Aminotransferase (ALT/SGPT) 22 U/L (14-59) Alkaline Phosphatase 64 U/L (46-116) Total Protein 7.7 g/dL (6.4-8.2) Albumin 3.4 g/dL (3.4-5.0) Albumin/Globulin Ratio 0.8 (1.0-1.7) Review of Systems Review of Systems: No clubbing, no ecchymosis Assessment and Plan Assessmemt and Plan 06/18/2020 A: -Demand ischemia in setting of post-COVID -myalgias, fatigue; COVID + apr 2020, post covid syndrome with neuropathy -Accelerated hypertension -morbid obesity P: Cardiac monitoring DVT prophylaxis OT/PT Home meds Full code D/c to home today as the MRI results were negative Comment Review of Relevant I have reviewed the following items srinath (where applicable) has been applied. Medications: Current Medications Medications (Trade) Dose Ordered Sig/[place] Route PRN Reason Start Time Stop Time Status Last Admin Dose Admin Lisinopril (Prinivil) 20 mg QHS PO 06/17/20 21:00 06/17/20 20:02 Gadoterate Meglumine (Clariscan) 10 ml 1X ONCE IVP 06/18/20 08:30 06/18/20 08:31 DC 06/18/20 09:25 Gadoterate Meglumine (Clariscan) 10 ml 1X ONCE IVP 06/18/20 08:30 06/18/20 08:31 DC 06/18/20 09:25 Justifications for Admission Other Justification COVID infection JOSEPHINE JACKSON III DO Jun 18, 2020 11:32
--- NOTE | 2020-06-18 13:21 | NUR ---
SS following up with discharge planning. SS reviewed pt chart and discussed with pt RN. Pt is currently on room air. No PT/OT needs. Pt had Brain MRI today. Brain MRI was negative. Discharge order on the chart for home with self care.
--- NOTE | 2020-06-18 13:22 | DS ---
DATE OF DISCHARGE: 06/18/2020 ADMISSION DIAGNOSES: 1. Chest pain. 2. Myalgias. 3. Recent COVID-19. 4. Accelerated hypertension. 5. Troponin elevation. 6. Overweight. DISCHARGE DIAGNOSES: 1. Resolving chest pain, atypical. 2. Resolving accelerated hypertension. 3. Resolving elevated troponins, probably secondary to demand ischemia. 4. History of gastroesophageal reflux disease. 5. Anemia. 6. Gallstones. 7. Depression. 8. Back pain. 9. Urinary tract infection. 10. Hernia repair. CONSULTS: 1. Cardiology. 2. Dr. Reed, Neurology. PROCEDURES: None. HOSPITAL COURSE: The patient is a pleasant middle-aged female who presented with chest pain. She had recent COVID-19. She was admitted. We did a full cardiac workup including serial enzymes, serial EKGs. We consulted Cardiology, did cardiac monitoring and also consulted Neurology because she had some slight mental status change. We did an MRI, does not show anything severe. This morning, I saw and examined her, she is doing well. She wants to go home. We plan to discharge with close outpatient followup. DISPOSITION: Home. ACTIVITY: As tolerated. DIET: Low sodium. MEDICATIONS: Please see the MRAD. TOTAL TIME: 32 minutes. JOSEPHINE JACKSON DO DR: MISA/bjorn JOB#: [id number] / [id number]
--- NOTE | 2020-06-18 15:04 | NUR ---
Discharge Note: STEVE CATHERINE GWINNER Discharge instructions and discharge home medications reviewed with Patient and a copy given. All questions have been answered and understanding verbalized. The following instructions and handouts were given: Chest pain, Lisinopril, atorvastatin, dizziness Patient discharged to home with self care via private transportation IV out, monitor off and placed at nurses station.
== END 2020-06-18 14:30 | disposition home or self-care (01) ==
LOC: ER 15:22 → INTOOBSV 18:10 → ED HOLD 18:10 → 2 NORTH 19:33
PROVIDERS: ADMIT Family Medicine; ATTEND Family Medicine
DX: R07.89 Other chest pain (principal); I10 Essential (primary) hypertension; E66.01 Morbid (severe) obesity due to excess calories; G62.9 Polyneuropathy, unspecified; I24.8 Other forms of acute ischemic heart disease; M79.10 Myalgia, unspecified site; I65.23 Occlusion and stenosis of bilateral carotid arteries; K80.20 Calculus of gallbladder without cholecystitis without obstruction; J40 Bronchitis, not specified as acute or chronic; G93.40 Encephalopathy, unspecified; F32.9 Major depressive disorder, single episode, unspecified; D64.9 Anemia, unspecified; F41.9 Anxiety disorder, unspecified; N39.0 Urinary tract infection, site not specified; K21.9 Gastro-esophageal reflux disease without esophagitis; R74.8 Abnormal levels of other serum enzymes; M19.90 Unspecified osteoarthritis, unspecified site; Z86.16 Personal history of COVID-19; Z90.49 Acquired absence of other specified parts of digestive tract; Z98.890 Other specified postprocedural states; Z79.82 Long term (current) use of aspirin; Z79.899 Other long term (current) drug therapy; Z68.37 Body mass index [BMI] 37.0-37.9, adult
CPT/HCPCS: 36415; 70553; 71045; 78452; 80048; 80053; 80061; 81001; 82553; 83690; 83735; 83880; 84443; 84484; 85025; 85379; 87086; 87147; 93005; 93017; 93880; 96372; 96374; 96375; 99285; A9500; A9575; C8929; G0378; J1650; J2785; Q9956; G0379

== ENCOUNTER → 2021-03-04 | Outpatient (CLI) | payer OTHER ==
[~2021-03-04] MED LIST changes: +AMLO10TA4 PO
--- NOTE | 2021-03-06 11:03 | RAD ---
EXAM: CT OF THE CHEST WITHOUT CONTRAST. HISTORY: Shortness of breath, chest pain. History of COVID-19. TECHNIQUE: Computed tomography of the chest was performed without intravenous contrast. One or more o f the following individualized dose reduction techniques were utilized for this examination: 1. Automated exposure control. 2. Adjustment of the mA and/or kV according to patient size. 3. Use of iterative reconstruction technique. COMPARISON: 06/13/2020. FINDINGS: Images of the upper abdomen reveal changes of cholecystectomy. There is a vague hypoattenua ting lesion within hepatic segment 5/6 measuring 2.8 x 2.3 cm. Bone windows reveal no suspicious lesi ons. There are no pathologically enlarged mediastinal or axillary lymph nodes. There is no pleural or ramez cardial effusion. The heart is not enlarged. Lung windows reveal no infiltrates or evidence of interstitial lung disease. IMPRESSION: 1. Negative CT of the chest. 2. A 2.8 cm hypoattenuating lesion within the right hepatic lobe is incompletely assessed on this exa mination, but has been chronically stable by report and is likely benign. Electronically signed by: Nicolás Brandon MD (03/06/2021 11:00 AM) [facility]
== END ==
LOC: CT 08:39
PROVIDERS: ATTEND Internal Medicine Cardiovascular Disease
DX: R06.02 Shortness of breath (principal); R07.9 Chest pain, unspecified; Z90.49 Acquired absence of other specified parts of digestive tract
CPT/HCPCS: 71250